=== PATIENT | female | born 1970 | race Two or more races ===

== ENCOUNTER 2018-02-14 19:31 | Emergency (ER) | payer OTHER ==
[2018-02-14] MEDS ORDERED: Sodium Chloride 0.9% 1,000 ML IV ONE (20:31)
[2018-02-14] MEDS ORDERED: Sodium Chloride 0.9% 10 ML Syringe FLUSH PRN (20:33)
[2018-02-14] MEDS ORDERED: Sodium Chloride 0.9% 500 ML IV ONE (21:59)
--- NOTE | 2018-02-14 22:02 | EDM.PDOC ---
<Claude Liu - Last Filed: 02/17/18 08:05> ED HPI GENERAL MEDICAL PROBLEM - General Chief Complaint: General Stated Complaint: WEAK Time Seen by Provider: 02/14/18 20:20 - Related Data Allergies Allergy/AdvReac Type Severity Reaction Status Date / Time No Known Allergies Allergy Verified 02/18/18 02:15 Home Meds: Home Meds Folic Acid 1 tab PO DAILY 02/14/18 [History] Furosemide [Lasix] 1 tab PO DAILY 02/14/18 [History] Glimepiride [Amaryl] 3 tab PO DAILY 02/14/18 [History] amLODIPine Besylate [Amlodipine Besylate] 1 tab PO DAILY 02/14/18 [History] hydroCHLOROthiazide [Hydrochlorothiazide] 1 tab PO DAILY 02/14/18 [History] Ondansetron [Zofran ODT] 4 mg PO Q6H PRN #20 tab.dis 02/21/18 [Rx] Course - Vital Signs Last Recorded V/S: Last Vital Signs Temp 99.0 F 02/14/18 19:46 Pulse 84 02/14/18 19:46 Resp 16 02/14/18 19:46 BP 135/70 02/14/18 19:46 Pulse Ox 99 02/14/18 19:46 - Orders/Labs/Meds Labs: Laboratory Tests 02/14/18 02/14/18 02/14/18 Range/Units 20:15 20:15 20:44 WBC 4.61 (3.98-10.04) K/mm3 RBC 2.72 L (3.98-5.22) M/mm3 Hgb 8.1 L (11.2-15.7) gm/L Hct 25.1 L (34.1-44.9) % MCV 92.3 (79.4-94.8) fl MCH 29.8 (25.6-32.2) pg MCHC 32.3 (32.2-35.5) g/dl RDW Std Deviation 41.5 (36.4-46.3) fL Plt Count 232 (182-369) K/mm3 MPV 8.2 L (9.4-12.3) fl Neutrophils % (Manual) 83 H (40-60) % Band Neutrophils % 1 (0-10) % Lymphocytes % (Manual) 15 L (20-40) % Atypical Lymphs % 0 % Monocytes % (Manual) 0 L (2-10) % Eosinophils % (Manual) 0 L (0.7-5.8) % Basophils % (Manual) 1 (0.1-1.2) Platelet Estimate Adequate Polychromasia 1+ slight Anisocytosis 1+ slight RBC Morph Comment Not Reportable Sodium (136-145) mEq/L Potassium (3.5-5.1) mEq/L Chloride (98-107) mEq/L Carbon Dioxide (21-32) mEq/L Anion Gap (5-15) BUN (7-18) mg/dL Creatinine (0.55-1.02) mg/dL Est Cr Clr Drug Dosing mL/min Estimated GFR (MDRD) (>60) mL/min BUN/Creatinine Ratio (14-18) Glucose (74-106) mg/dL Calcium (8.5-10.1) mg/dL Magnesium (1.8-2.4) mg/dl Total Bilirubin (0.2-1.0) mg/dL AST (15-37) U/L ALT (14-59) U/L Alkaline Phosphatase (46-116) U/L C-Reactive Protein (<1.0) mg/dL Total Protein (6.4-8.2) g/dl Albumin (3.4-5.0) g/dl Globulin gm/dL Albumin/Globulin Ratio (1-2) TSH 3rd Generation (0.358-3.74) uIU/mL Urine Color Yellow (Yellow) Urine Appearance Slt cloudy H (Clear) Urine pH 6.0 (5.0-8.0) Ur Specific [place] > or = 1.030 (1.005-1.030) Urine Protein 3+ H (Negative) Urine Glucose (UA) 1+ H (Negative) Urine Ketones Negative (Negative) Urine Occult Blood 2+ H (Negative) Urine Nitrite Positive H (Negative) Urine Bilirubin Negative (Negative) Urine Urobilinogen 0.2 (0.2-1.0) Ur Leukocyte Esterase Negative (Negative) Urine RBC 10-20 H (0-5) /hpf Urine WBC 20-30 H (0-5) /hpf Ur Epithelial Cells 5-10 H (0-5) /hpf Urine Bacteria Many H (FEW) /hpf Urine Mucus Few (FEW) /hpf Urine HCG, Qual Negative (NEGATIVE) C.difficile [id number] C. difficile Tox (PCR) 02/14/18 02/14/18 Range/Units 20:44 22:16 WBC (3.98-10.04) K/mm3 RBC (3.98-5.22) M/mm3 Hgb (11.2-15.7) gm/L Hct (34.1-44.9) % MCV (79.4-94.8) fl MCH (25.6-32.2) pg MCHC (32.2-35.5) g/dl RDW Std Deviation (36.4-46.3) fL Plt Count (182-369) K/mm3 MPV (9.4-12.3) fl Neutrophils % (Manual) (40-60) % Band Neutrophils % (0-10) % Lymphocytes % (Manual) (20-40) % Atypical Lymphs % % Monocytes % (Manual) (2-10) % Eosinophils % (Manual) (0.7-5.8) % Basophils % (Manual) (0.1-1.2) Platelet Estimate Polychromasia Anisocytosis RBC Morph Comment Sodium 144 (136-145) mEq/L Potassium 4.3 (3.5-5.1) mEq/L Chloride 116 H (98-107) mEq/L Carbon Dioxide 17 L (21-32) mEq/L Anion Gap 15.3 H (5-15) BUN 51 H (7-18) mg/dL Creatinine 2.1 H (0.55-1.02) mg/dL Est Cr Clr Drug Dosing 25.53 mL/min Estimated GFR (MDRD) 25 (>60) mL/min BUN/Creatinine Ratio 24.3 H (14-18) Glucose 72 L (74-106) mg/dL Calcium 8.0 L (8.5-10.1) mg/dL Magnesium 2.2 (1.8-2.4) mg/dl Total Bilirubin 0.1 L (0.2-1.0) mg/dL AST 44 H (15-37) U/L ALT 37 (14-59) U/L Alkaline Phosphatase 102 (46-116) U/L C-Reactive Protein 2.8 H* (<1.0) mg/dL Total Protein 5.5 L (6.4-8.2) g/dl Albumin 1.4 L (3.4-5.0) g/dl Globulin 4.1 gm/dL Albumin/Globulin Ratio 0.3 L (1-2) TSH 3rd Generation 2.153 (0.358-3.74) uIU/mL Urine Color (Yellow) Urine Appearance (Clear) Urine pH (5.0-8.0) Ur Specific [place] (1.005-1.030) Urine Protein (Negative) Urine Glucose (UA) (Negative) Urine Ketones (Negative) Urine Occult Blood (Negative) Urine Nitrite (Negative) Urine Bilirubin (Negative) Urine Urobilinogen (0.2-1.0) Ur Leukocyte Esterase (Negative) Urine RBC (0-5) /hpf Urine WBC (0-5) /hpf Ur Epithelial Cells (0-5) /hpf Urine Bacteria (FEW) /hpf Urine Mucus (FEW) /hpf Urine HCG, Qual (NEGATIVE) C.difficile [id number] Presumptive negative C. difficile Tox (PCR) Negative Meds: Medications Discontinued Medications Generic Name Dose Route Start Last Admin Trade Name Freq PRN Reason Stop Dose Admin Sodium Chloride 1,000 mls @ 999 mls/hr 02/14/18 20:31 02/14/18 20:50 Normal Saline IV 02/14/18 21:31 999 mls/hr ONETIME ONE Administration Sodium Chloride 500 mls @ 999 mls/hr 02/14/18 21:59 02/14/18 22:14 Normal Saline IV 02/14/18 22:29 999 mls/hr ONETIME ONE Administration Sodium Chloride 10 ml 02/14/18 20:33 02/14/18 20:50 Saline Flush FLUSH 10 ml ASDIRECTED PRN Administration Keep Vein Open - Re-Assessments/Exams Free Text/Narrative Re-Assessment/Exam: 02/17/18 08:06 urine culture has come back growing out ecoli sensative to Bactrim prescribed. Departure - Departure Disposition: Home, Self-Care 01 Clinical Impression: Renal insufficiency, Viral gastroenteritis, UTI (urinary tract infection) Anemia Qualifiers: Anemia type: other cause Other causes of anemia: other cause, not classified Qualified Code(s): D64.89 - Other specified anemias - Discharge Information Instructions: Anemia Referrals: PCP,Not In Area [Primary Care Provider] - Forms: ED Department Discharge, ED Return to Work/School Form Additional Instructions: Rx for bactrim 1 tab PO bid x 7 days given from [facility]. Rest. Drink plenty of fluids. [place] diet as tolerated next 1-2 days. [place] diet recommendations include chicken noodle soup, bread, applesauce, yogurt, etc. Recommend starting a probiotic, these are available over the counter. Take the bactrim as prescribed, 1 tab PO bid x 7 days. Follow-up with you director skills as soon as your are able to. Please let them know your hemoglobin was 8.1 tonight. Follow-up with your nurse administrator for further management of your kidney function. Your creatinine tonight was 2.1. Follow-up with you PCP in 1-2 weeks to ensure your diarrhea and UTI symptoms have resolved. Please return to the ER should your symptoms change or worsen. <Dena Navarrete - Last Filed: 02/23/18 05:57> ED HPI GENERAL MEDICAL PROBLEM - General Source of Information: Reports: Patient History Limitations: Reports: No Limitations - History of Present Illness INITIAL COMMENTS - FREE TEXT/NARRATIVE: 47 year old female presents for evaluation and treatment of weakness and diarrhea. Reports symptoms have been going on for the last 2 days. Reports over 10 episodes of diarrhea a day, no blood in her stool. Current symptoms include weakness, nausea, diarrhea, chills and cough. She reports her stomach has been turning but no abdominal pain. Reports increased urinary frequency but no dysuria. Denies any vomiting, shortness of breath or chest pain. Patient also feels her face is more swollen than normal. Patient currently resides in [place] and is in [place] visiting family. She has a past medical history of type 2 diabetes and G6PD deficiency which has caused her anemia requiring blood transfusion in the past. Last blood transfusion was this summer after having issues with a periappendiceal abscess which required drainage. Currently her G6PD deficiency is managed with folic acid. She has a PCP, director skills and nurse administrator at home in [place]. No recent antibiotics. No other recent travel other than coming to [place] for [place]. Past Medical History HEENT History: Reports: Impaired Vision Cardiovascular History: Reports: Hypertension Genitourinary History: Reports: UTI, Recurrent Endocrine/Metabolic History: Reports: Diabetes, Type II Hematologic History: Reports: Other (See Below) Other Hematologic History: G6PD deficiency - Past Surgical History HEENT Surgical History: Reports: Eye Surgery, Other (See Below) Other HEENT Surgeries/Procedures: wisdom teeth removal Social & Family History - Family History Family Medical History: Noncontributory - Tobacco Use Smoking Status *Q: Never Smoker - Caffeine Use Caffeine Use: Reports: Coffee - Recreational Drug Use Recreational Drug Use: No ED ROS GENERAL - Review of Systems Review Of Systems: See Below Constitutional: Reports: Chills, Decreased Appetite. Denies: Fever Respiratory: Reports: Cough. Denies: Shortness of Breath Cardiovascular: Denies: Chest Pain GI/Abdominal: Reports: Diarrhea, Nausea. Denies: Abdominal Pain, Bloody Stool, Vomiting : Reports: Frequency. Denies: Dysuria Neurological: Denies: Syncope ED EXAM, GENERAL - Physical Exam Exam: See Below Exam Limited By: No Limitations General Appearance: Alert, WD/WN, No Apparent Distress, Other (chronically ill appearing) Ears: Normal External Exam Nose: Normal Inspection Throat/Mouth: Normal Inspection, Normal Lips, Normal Oropharynx, Normal Voice, No Airway Compromise Head: Facial Swelling (evident by swelling under the eyes) Respiratory/Chest: No Respiratory Distress, Lungs Clear, Normal Breath Sounds Cardiovascular: Normal Peripheral Pulses, Regular Rate, Rhythm, No Murmur Peripheral Pulses: 2+: Radial (L), Radial (R), Posterior Tibial (L), Posterior Tibial (R), Dorsalis Pedis (L), Dorsalis Pedis (R) GI/Abdominal: Normal Bowel Sounds, Soft, Non-Tender Extremities: Normal Inspection, Other (2+ bilteral pitting edema) Neurological: Alert, Oriented, Normal Cognition Psychiatric: Normal Affect, Normal Mood Skin Exam: Warm, Dry, Pallor Course - Radiology Interpretation Free Text/Narrative:: chest xray shows no acute intrathoracic process, mild congestion abdominal xray shows a normal bowel gas pattern. - Re-Assessments/Exams Free Text/Narrative Re-Assessment/Exam: 02/14/18 22:54 I reviewed the labs and imaging with the patient. Discussed her elevated creatinine, patient currently sees nephrology. She reports her nurse administrator has been monitoring her kidney function. Discussed her hemoglobin, currently sees hematology. No need for transfusion tonight. Recommend close follow-up. Will treat with fluids for the diarrhea and bactrim for the UTI. Will discharge home. Recommend close follow-up with her PCP and specialist when she returns home. Discharge instructions as documented, Departure - Departure Time of Disposition: 22:48 - Discharge Information *PRESCRIPTION DRUG MONITORING PROGRAM REVIEWED*: No *COPY OF PRESCRIPTION DRUG MONITORING REPORT IN PATIENT ADDI: No
--- NOTE | 2018-02-16 08:30 | CR ---
Abdomen: Supine and upright views of the abdomen were obtained. Comparison: No previous study. Bowel gas pattern is normal. Calcifications are seen within the pelvis which are compatible with phleboliths. No free air is seen. Bony structures are unremarkable. Impression: 1. Nothing acute is appreciated. Diagnostic code #2
--- NOTE | 2018-02-16 08:30 | CR ---
Chest: Frontal view of the chest was obtained. Comparison: No prior chest x-ray. Heart appears mildly enlarged. Two healing left lower rib fractures are noted with callus. Central lung markings are increased suggesting mild pulmonary vascular congestion. Impression: 1. Findings suspicious for mild CHF. 2. Two healing left sided rib fractures. Diagnostic code #3
== END 2018-02-14 23:13 | disposition home or self-care (01) ==
LOC: JD.ED 19:31
DX: A08.4 Viral intestinal infection, unspecified (principal); N39.0 Urinary tract infection, site not specified; D64.89 Other specified anemias; N28.9 Disorder of kidney and ureter, unspecified; E11.9 Type 2 diabetes mellitus without complications; I10 Essential (primary) hypertension; Z79.899 Other long term (current) drug therapy
CPT/HCPCS: 36415; 71045; 74019; 80053; 81001; 81025; 83735; 84443; 85007; 85027; 86140; 87086; 87088; 87186; 87493; 96360; 96361; 99285; J7040

== ENCOUNTER 2018-02-18 01:59 | Inpatient (IN) | payer OTHER ==
[2018-02-18] MEDS ORDERED: Sodium Chloride 0.9% 10 ML Syringe FLUSH PRN (02:40)
[2018-02-18] MEDS ORDERED: Ondansetron 4 MG/2 ML SDV IVPUSH ONE (02:42)
--- NOTE | 2018-02-18 04:02 | EDM.PDOC ---
ED HPI GENERAL MEDICAL PROBLEM - General Chief Complaint: Gastrointestinal Problem Stated Complaint: [facility] Time Seen by Provider: 02/18/18 02:20 Source of Information: Reports: Patient, EMS, Family History Limitations: Reports: No Limitations - History of Present Illness INITIAL COMMENTS - FREE TEXT/NARRATIVE: The patient presents by [facility] for diarrhea. The patient is here from [facility] visiting family and she has been having diarrhea for about a week and she feels like it is getting worse. She did not eat any bad food and she has not been around anyone who was sick. She was seen here on the 14 of February. A complete work up was done and her Hgb at that time was 8.2. She has a history of gpqnxxg-[id number] dehydrogenase deficiency. Her UA then showed she had a UTI and she was put on bactrim. Her diarrhea did get better for a short time but now she feels worse. She had stool studies done and she was C-dif negative. She has been trying to eat and drink. She has no fever, chills, cough, or chest pain. She does have some shortness of breath, generalized weakness and fatigue. She has swelling in both legs also. This has been going on for awhile and her doctor has her on HCTZ and lasix. She also has kidney disease and she sees a call center operator back home. A few days ago her creatinine was 2.1. She denies having abdominal pain. She did have appendicitis this summer that was treated with antibiotics. Onset: Gradual Duration: Week(s): Severity: Moderate Improves with: Reports: None Worsens with: Reports: None Associated Symptoms: Reports: Shortness of Breath. Denies: Chest Pain, Cough, Fever/Chills, Headaches, Nausea/Vomiting - Related Data Allergies Allergy/AdvReac Type Severity Reaction Status Date / Time No Known Allergies Allergy Verified 02/18/18 02:15 Home Meds: Home Meds Folic Acid 1 tab PO DAILY 02/14/18 [History] Furosemide [Lasix] 1 tab PO DAILY 02/14/18 [History] Glimepiride [Amaryl] 3 tab PO DAILY 02/14/18 [History] amLODIPine Besylate [Amlodipine Besylate] 1 tab PO DAILY 02/14/18 [History] hydroCHLOROthiazide [Hydrochlorothiazide] 1 tab PO DAILY 02/14/18 [History] Past Medical History HEENT History: Reports: Impaired Vision Cardiovascular History: Reports: Hypertension Genitourinary History: Reports: UTI, Recurrent Endocrine/Metabolic History: Reports: Diabetes, Type II Hematologic History: Reports: Other (See Below) Other Hematologic History: G6PD deficiency - Past Surgical History HEENT Surgical History: Reports: Eye Surgery, Other (See Below) Other HEENT Surgeries/Procedures: wisdom teeth removal Social & Family History - Family History Family Medical History: Noncontributory - Tobacco Use Smoking Status *Q: Never Smoker - Caffeine Use Caffeine Use: Reports: Coffee - Recreational Drug Use Recreational Drug Use: No ED ROS GENERAL - Review of Systems Review Of Systems: See Below Constitutional: Reports: Weakness, Fatigue. Denies: Fever, Chills HEENT: Reports: No Symptoms Respiratory: Reports: Shortness of Breath. Denies: Cough Cardiovascular: Reports: Edema. Denies: Chest Pain Endocrine: Reports: No Symptoms GI/Abdominal: Reports: Diarrhea, Nausea. Denies: Abdominal Pain, Vomiting : Reports: No Symptoms Musculoskeletal: Reports: No Symptoms ED EXAM, GI/ABD - Physical Exam Exam: See Below Exam Limited By: No Limitations General Appearance: Alert, No Apparent Distress Ears: Normal External Exam Nose: Normal Inspection Head: Atraumatic, Normocephalic Neck: Normal Inspection Respiratory/Chest: No Respiratory Distress, Lungs Clear, Normal Breath Sounds Cardiovascular: Regular Rate, Rhythm, No Murmur, Other (2+ edema in both legs) GI/Abdominal Exam: Soft, Non-Tender, No Organomegaly, No Mass, Other ( Hyperactive bowel sounds) Back Exam: Normal Inspection Extremities: Pedal Edema Neurological: Alert, Oriented, No Motor/Sensory Deficits EKG INTERPRETATION EKG Date: 02/18/18 Time: 02:49 Rhythm: NSR Rate (Beats/Min): 80 [place]: Normal P-Wave: Present QRS: Normal ST-T: Normal QT: Normal Course - Vital Signs Last Recorded V/S: Last Vital Signs Temp 97.7 F 02/18/18 04:52 Pulse 81 02/18/18 04:52 Resp 18 02/18/18 04:52 BP 120/59 L 02/18/18 04:52 Pulse Ox 100 02/18/18 02:03 - Orders/Labs/Meds Orders: Active Orders 24 hr Category Date Time Status Cardiac Monitoring [RC] . DIRECTED Care 02/18/18 02:40 Active EKG Documentation Completion [RC] STAT Care 02/18/18 02:41 Active Peripheral IV Care [RC] . DIRECTED Care 02/18/18 02:41 Active Abdomen Pelvis wo Cont [CT] Stat Exams 02/18/18 02:41 Taken PATIENT RETYPE [BBK] Stat Lab 02/18/18 03:02 Results RED BLOOD CELLS LP [BBK] Stat Lab 02/18/18 03:02 Results TYPE AND SCREEN [BBK] Stat Lab 02/18/18 03:02 Results Sodium Chloride 0.9% [Normal Saline] 500 ml Med 02/18/18 04:39 Active IV ONETIME Sodium Chloride 0.9% [Normal Saline] 500 ml Med 02/18/18 04:46 Active IV ONETIME Sodium Chloride 0.9% [Saline Flush] Med 02/18/18 02:40 Active 10 ml FLUSH ASDIRECTED PRN Peripheral IV Insertion Adult [OM.PC] Stat Oth 02/18/18 02:40 Ordered Transfuse RBC [Transfuse Red Blood Cells] [COMM] Stat Oth 02/18/18 03:16 Ordered Medication Orders Sodium Chloride (Normal Saline) 500 mls @ 20 mls/hr IV ONETIME ONE Stop: 02/19/18 05:38 Last Admin: 02/18/18 04:48 Dose: Not Given Sodium Chloride (Normal Saline) 500 mls @ 25 mls/hr IV ONETIME ONE Stop: 02/19/18 00:45 Last Admin: 02/18/18 04:47 Dose: 25 mls/hr Sodium Chloride (Saline Flush) 10 ml FLUSH ASDIRECTED PRN PRN Reason: Keep Vein Open Last Admin: 02/18/18 02:53 Dose: 10 ml Labs: Laboratory Tests 02/18/18 02/18/18 02/18/18 Range/Units 02:55 03:02 03:02 WBC 6.03 (3.98-10.04) K/mm3 RBC 2.25 L (3.98-5.22) M/mm3 Hgb 6.8 L* (11.2-15.7) gm/L Hct 20.4 L (34.1-44.9) % MCV 90.7 (79.4-94.8) fl MCH 30.2 (25.6-32.2) pg MCHC 33.3 (32.2-35.5) g/dl RDW Std Deviation 39.6 (36.4-46.3) fL Plt Count 223 (182-369) K/mm3 MPV 8.5 L (9.4-12.3) fl Neut % (Auto) 70.6 (34.0-71.1) % Lymph % (Auto) 17.6 L (19.3-51.7) % [place] % (Auto) 9.8 (4.7-12.5) % Eos % (Auto) 1.8 (0.7-5.8) Baso % (Auto) 0.2 (0.1-1.2) % Neut # (Auto) 4.26 (1.56-6.13) K/mm3 Lymph # (Auto) 1.06 L (1.18-3.74) K/mm3 [place] # (Auto) 0.59 H (0.24-0.36) K/mm3 Eos # (Auto) 0.11 (0.04-0.36) K/mm3 Baso # (Auto) 0.01 (0.01-0.08) K/mm3 Manual Slide Review Abnormal smear Sodium 138 (136-145) mEq/L Potassium 4.2 (3.5-5.1) mEq/L Chloride 111 H (98-107) mEq/L Carbon Dioxide 15 L (21-32) mEq/L Anion Gap 16.2 H (5-15) BUN 54 H (7-18) mg/dL Creatinine 3.1 H (0.55-1.02) mg/dL Est Cr Clr Drug Dosing 17.29 mL/min Estimated GFR (MDRD) 16 (>60) mL/min BUN/Creatinine Ratio 17.4 (14-18) Glucose 98 (74-106) mg/dL Calcium 7.5 L (8.5-10.1) mg/dL Magnesium 2.0 (1.8-2.4) mg/dl Total Bilirubin 0.1 L (0.2-1.0) mg/dL AST 51 H (15-37) U/L ALT 43 (14-59) U/L Alkaline Phosphatase 95 (46-116) U/L Troponin I 0.044 (0.00-0.056) ng/mL NT-Pro-B Natriuret Pep (0-125) pg/mL Total Protein 5.3 L (6.4-8.2) g/dl Albumin 1.2 L (3.4-5.0) g/dl Globulin 4.1 gm/dL Albumin/Globulin Ratio 0.3 L (1-2) Lipase 156 (73-393) U/L HCG, Qual (NEGATIVE) Urine Color Yellow (Yellow) Urine Appearance Clear (Clear) Urine pH 6.0 (5.0-8.0) Ur Specific Mobile > or = 1.030 (1.005-1.030) Urine Protein 3+ H (Negative) Urine Glucose (UA) 1+ H (Negative) Urine Ketones Negative (Negative) Urine Occult Blood 2+ H (Negative) Urine Nitrite Negative (Negative) Urine Bilirubin Negative (Negative) Urine Urobilinogen 0.2 (0.2-1.0) Ur Leukocyte Esterase Negative (Negative) Urine RBC 5-10 H (0-5) /hpf Urine WBC 0-5 (0-5) /hpf Ur Epithelial Cells 0-5 (0-5) /hpf Urine Bacteria Few (FEW) /hpf Hyaline Casts 0-5 (0-5) /lpf Urine Mucus Few (FEW) /hpf Blood Type Gel Antibody Screen Crossmatch 02/18/18 02/18/18 Range/Units 03:02 03:02 WBC (3.98-10.04) K/mm3 RBC (3.98-5.22) M/mm3 Hgb (11.2-15.7) gm/L Hct (34.1-44.9) % MCV (79.4-94.8) fl MCH (25.6-32.2) pg MCHC (32.2-35.5) g/dl RDW Std Deviation (36.4-46.3) fL Plt Count (182-369) K/mm3 MPV (9.4-12.3) fl Neut % (Auto) (34.0-71.1) % Lymph % (Auto) (19.3-51.7) % [place] % (Auto) (4.7-12.5) % Eos % (Auto) (0.7-5.8) Baso % (Auto) (0.1-1.2) % Neut # (Auto) (1.56-6.13) K/mm3 Lymph # (Auto) (1.18-3.74) K/mm3 [place] # (Auto) (0.24-0.36) K/mm3 Eos # (Auto) (0.04-0.36) K/mm3 Baso # (Auto) (0.01-0.08) K/mm3 Manual Slide Review Sodium (136-145) mEq/L Potassium (3.5-5.1) mEq/L Chloride (98-107) mEq/L Carbon Dioxide (21-32) mEq/L Anion Gap (5-15) BUN (7-18) mg/dL Creatinine (0.55-1.02) mg/dL Est Cr Clr Drug Dosing mL/min Estimated GFR (MDRD) (>60) mL/min BUN/Creatinine Ratio (14-18) Glucose (74-106) mg/dL Calcium (8.5-10.1) mg/dL Magnesium (1.8-2.4) mg/dl Total Bilirubin (0.2-1.0) mg/dL AST (15-37) U/L ALT (14-59) U/L Alkaline Phosphatase (46-116) U/L Troponin I (0.00-0.056) ng/mL NT-Pro-B Natriuret Pep 3677 H (0-125) pg/mL Total Protein (6.4-8.2) g/dl Albumin (3.4-5.0) g/dl Globulin gm/dL Albumin/Globulin Ratio (1-2) Lipase (73-393) U/L HCG, Qual Negative (NEGATIVE) Urine Color (Yellow) Urine Appearance (Clear) Urine pH (5.0-8.0) Ur Specific [place] (1.005-1.030) Urine Protein (Negative) Urine Glucose (UA) (Negative) Urine Ketones (Negative) Urine Occult Blood (Negative) Urine Nitrite (Negative) Urine Bilirubin (Negative) Urine Urobilinogen (0.2-1.0) Ur Leukocyte Esterase (Negative) Urine RBC (0-5) /hpf Urine WBC (0-5) /hpf Ur Epithelial Cells (0-5) /hpf Urine Bacteria (FEW) /hpf Hyaline Casts (0-5) /lpf Urine Mucus (FEW) /hpf Blood Type O POSITIVE Gel Antibody Screen Negative Crossmatch See Detail Meds: Medications Generic Name Dose Route Start Last Admin Trade Name Juwan PRN Reason Stop Dose Admin Sodium Chloride 500 mls @ 20 mls/hr 02/18/18 04:39 02/18/18 04:48 Normal Saline IV 02/19/18 05:38 Not Given ONETIME ONE Sodium Chloride 500 mls @ 25 mls/hr 02/18/18 04:46 02/18/18 04:47 Normal Saline IV 02/19/18 00:45 25 mls/hr ONETIME ONE Administration Sodium Chloride 10 ml 02/18/18 02:40 02/18/18 02:53 Saline Flush FLUSH 10 ml ASDIRECTED PRN Administration Keep Vein Open Discontinued Medications Generic Name Dose Route Start Last Admin Trade Name Juwan PRN Reason Stop Dose Admin Sodium Chloride Confirm 02/18/18 04:27 02/18/18 04:48 Normal Saline Administered 02/18/18 04:28 Not Given Dose 500 mls @ as directed .ROUTE .STK-MED ONE Ondansetron HCl 4 mg 02/18/18 02:42 02/18/18 02:53 Zofran IVPUSH 02/18/18 02:43 4 mg ONETIME ONE Administration - Re-Assessments/Exams Free Text/Narrative Re-Assessment/Exam: 02/18/18 05:14 I ordered an IV saline lock, EKG, labs, UA and a CT of her abdomen and pelvis. She as a history of renal disease so I did not use IV contrast. Her EKG shows a NSR with no acute changes. Her WBC was normal along with her platelets. Her Hgb was low at 6.8. I ordered 2 units of red blood cells. Her anion gap was elevated at 16.2. Her BUN was elevated at 54 and her creatinine was elevated at 3.1 with a low GFR of 16. Her calcium was 7.5. Her troponin was negative. Her BNP was 3677. Her lipase was normal. Her UA shows no UTI. Her CT shows significant third spacing of fluid within the chest and abdominal wall with small bilateral pleural effusions. Appearance is consistent with volume overload/CHF. Trace pericardial effusion. This may also be secondary to a fluid shift phenomenon. Inflammatory etiologies are not excluded. No acute findings in the abdomen and pelvis. She is getting blood now. I feel she needs to be admitted. I called Dr Singh and he agreed to the admission. Departure - Departure Time of Disposition: 05:20 Disposition: Admitted As Inpatient 68 Condition: Poor Clinical Impression: Renal insufficiency, Viral gastroenteritis Anemia Qualifiers: Anemia type: other cause Other causes of anemia: other cause, not classified Qualified Code(s): D64.89 - Other specified anemias Edema Qualifiers: Edema type: generalized Qualified Code(s): R60.1 - Generalized edema - Discharge Information Referrals: PCP,Not In Area [Primary Care Provider] - Forms: ED Department Discharge - My Orders Last 24 Hours: My Active Orders 02/18/18 02:40 Cardiac Monitoring [RC] . DIRECTED Sodium Chloride 0.9% [Saline Flush] 10 ml FLUSH ASDIRECTED PRN Peripheral IV Insertion Adult [OM.PC] Stat 02/18/18 02:41 EKG Documentation Completion [RC] STAT Peripheral IV Care [RC] . DIRECTED Abdomen Pelvis wo Cont [CT] Stat 02/18/18 03:02 PATIENT RETYPE [BBK] Stat RED BLOOD CELLS LP [BBK] Stat TYPE AND SCREEN [BBK] Stat 02/18/18 03:16 Transfuse RBC [Transfuse Red Blood Cells] [COMM] Stat 02/18/18 04:39 Sodium Chloride 0.9% [Normal Saline] 500 ml IV ONETIME 02/18/18 04:46 Sodium Chloride 0.9% [Normal Saline] 500 ml IV ONETIME - Assessment/Plan Last 24 Hours: My Active Orders 02/18/18 02:40 Cardiac Monitoring [RC] . DIRECTED Sodium Chloride 0.9% [Saline Flush] 10 ml FLUSH ASDIRECTED PRN Peripheral IV Insertion Adult [OM.PC] Stat 02/18/18 02:41 EKG Documentation Completion [RC] STAT Peripheral IV Care [RC] . DIRECTED Abdomen Pelvis wo Cont [CT] Stat 02/18/18 03:02 PATIENT RETYPE [BBK] Stat RED BLOOD CELLS LP [BBK] Stat TYPE AND SCREEN [BBK] Stat 02/18/18 03:16 Transfuse RBC [Transfuse Red Blood Cells] [COMM] Stat 02/18/18 04:39 Sodium Chloride 0.9% [Normal Saline] 500 ml IV ONETIME 02/18/18 04:46 Sodium Chloride 0.9% [Normal Saline] 500 ml IV ONETIME
[2018-02-18] MEDS ORDERED: Sodium Chloride 0.9% 500 ML IV ONE ×2 (04:39→04:46)
[2018-02-18] MEDS: Sodium Chloride 0.9% 500 ML ONE ×3 (04:40→04:48)
[2018-02-18] MEDS ORDERED: Bumetanide 1 MG/4 ML MDV IVPUSH ONE (07:30)
--- NOTE | 2018-02-18 08:25 | PCM.HP ---
H&P History of Present Illness - General Date of Service: 02/18/18 Admit Problem/Dx: Admission Diagnosis/Problem Admission Diagnosis/Problem Anemia Source of Information: Patient, Old Records, Provider, RN, RN Notes Reviewed History Limitations: Reports: No Limitations - History of Present Illness Initial Comments - Free Text/Narative: Ashley Winters is a 47 yo female who presents to our ED via [facility] in the very early hours today with diarrhea. She is reportedly from [facility] and is here visiting family. She reports she has been having diarrhea for about a week and feels like it is getting worse. She denies any consumption of spoiled food or sick contacts. She was here on 14 February and at that time a complete workup was done. Her hemoglobin was found to be 8.2. She has a history of [id number] dehydrogenase deficiency. At that visit her UA showed a UTI and she was placed on Bactrim she reports her diarrhea did improve at that time for a very short period and then got worse she did have stool studies performed and she was C. difficile negative. She has been trying to eat and drink to stay hydrated. Eyes any fever, chills, cough, chest pain. She reports generalized weakness fatigue and shortness of breath along with swelling bilaterally. Her PCP has run HCTZ and Lasix. She also reports she has kidney disease and sees a blowing weasand in [place]. Creatinine at the prior visit was 2.1. Denies any abdominal pain. She does report that she had appendicitis this past summer which was treated with antibiotics. In the ED an EKG was obtained showing sinus rhythm at 80 bpm with no abnormalities noted. Temp was 97.7 Fahrenheit. Pulse 81. Respirations 18. Blood pressure 120/59. Pulse ox 100%. Labs are obtained: WBC is 6.03. Hemoglobin 6.8. Hematocrit 20.4. She was normocytic. Platelets are good at 223,000. Neutrophils normal at 70.6. Sodium is 138. Potassium 4.2. Chloride 111. Carbon dioxide is 15. Anion gap is 16.2. BUN is 54. Creatinine 3.1. EGFR 16. Glucose 98. Calcium 7.5. Magnesium 2.0. Total bilirubin 0.1. AST is 51, ALT 43, alkaline phosphatase 95. Troponin is normal at 0.044. Protein is low at 5.3. Albumin very low at 1.2. Lipase is 156. UA is negative however her urine is concentrated and 3+ protein, 1+ glucose, 2+ occult blood, and 5-10 urine RBCs are noted. 3677. HCG is negative. Type and screen shows oh positive with negative screen. She is given 2 500 mL bags of fluid. CT scan of the abdomen and pelvis without contrast is obtained due to her kidney function contrast is not used. This is interpreted by Dr. Rodriguez as "1. Small bilateral pleural effusions with diffuse body wall edema. Minimal pericardial fluid is eating. 2. No acute intra-abdominal processes identified. " Stool is negative for blood. Stool cultures were ordered. 2 units of blood are given for her anemia. She carries a history of: Impaired vision, hypertension, recurrent UTIs, type II DM, G6PD deficiency. She was never a smoker. She is a full code. Her PCP is not from the area. - Related Data Allergies/Adverse Reactions: Allergies Allergy/AdvReac Type Severity Reaction Status Date / Time No Known Allergies Allergy Verified 02/18/18 02:15 Home Medications: Home Meds Folic Acid 1 tab PO DAILY 02/14/18 [History] Furosemide [Lasix] 1 tab PO DAILY 02/14/18 [History] Glimepiride [Amaryl] 3 tab PO DAILY 02/14/18 [History] amLODIPine Besylate [Amlodipine Besylate] 1 tab PO DAILY 02/14/18 [History] hydroCHLOROthiazide [Hydrochlorothiazide] 1 tab PO DAILY 02/14/18 [History] Past Medical History HEENT History: Reports: Impaired Vision Cardiovascular History: Reports: Hypertension Genitourinary History: Reports: Renal Disease, UTI, Recurrent Endocrine/Metabolic History: Reports: Diabetes, Type II Hematologic History: Reports: Other (See Below) Other Hematologic History: G6PD deficiency - Past Surgical History HEENT Surgical History: Reports: Eye Surgery, Other (See Below) Other HEENT Surgeries/Procedures: wisdom teeth removal Social & Family History - Family History Family Medical History: Noncontributory - Tobacco Use Smoking Status *Q: Never Smoker - Caffeine Use Caffeine Use: Reports: Coffee - Recreational Drug Use Recreational Drug Use: No H&P Review of Systems - Review of Systems: Review Of Systems: See Below General: Reports: No Symptoms. Denies: Fever, Chills, Malaise, Weakness, Fatigue HEENT: Reports: No Symptoms. Denies: Headaches, Visual Changes Pulmonary: Reports: No Symptoms. Denies: Shortness of Breath, Wheezing, Cough, Sputum Cardiovascular: Reports: Edema (improving ). Denies: Chest Pain, Palpitations Gastrointestinal: Reports: Diarrhea (althought none since this AM ). Denies: Abdominal Pain, Constipation, Nausea, Vomiting Genitourinary: Reports: No Symptoms. Denies: Pain Musculoskeletal: Reports: No Symptoms Skin: Reports: No Symptoms. Denies: Cyanosis Psychiatric: Reports: No Symptoms. Denies: Confusion Neurological: Reports: No Symptoms. Denies: Confusion, Dizziness, Numbness, Tingling, Weakness Hematologic/Lymphatic: Reports: No Symptoms Immunologic: Reports: No Symptoms Exam - Exam Exam: See Below - Vital Signs Vital Signs: Last Vital Signs Temp 98.6 F 02/18/18 07:38 Pulse 82 02/18/18 06:55 Resp 16 02/18/18 07:38 BP 128/77 02/18/18 07:38 Pulse Ox 100 02/18/18 07:38 Weight: 158 lb 8 oz - Exam Quality Assessment: DVT Prophylaxis General: Alert, Oriented, Cooperative. No: Mild Distress HEENT: Conjunctiva Clear, EACs Clear, EOMI, Hearing Intact, Mucosa Moist & Rachel , Nares Patent, Normal Nasal Septum, Posterior Pharynx Clear, PERRLA Neck: Supple, Trachea Midline Lungs: Clear to Auscultation, Normal Respiratory Effort Cardiovascular: Regular Rate, Regular Rhythm GI/Abdominal Exam: Normal Bowel Sounds, Soft, Non-Tender, No Distention, No Abnormal Bruit (Female) Exam: Deferred Rectal (Female) Exam: Deferred Back Exam: Normal Inspection, Full Range of Motion Extremities: Normal Inspection, Normal Range of Motion, Non-Tender, Normal Capillary Refill, Pedal Edema (1+ bilaterally ) Peripheral Pulses: 1+: Dorsalis Pedis (L), Dorsalis Pedis (R), 2+: Radial (L), Radial (R) Skin: Warm, Dry, Intact Neurological: Cranial Nerves Intact (Grossly ) Neuro Extensive - Mental Status: Alert, Oriented x3, Normal Mood/Affect, Normal Cognition Psychiatric: Alert, Normal Affect, Normal Mood - Patient Data Lab Results Last 24 hrs: Laboratory Results - last 24 hr 02/18/18 02/18/18 02/18/18 Range/Units 02:55 03:02 03:02 WBC 6.03 (3.98-10.04) K/mm3 RBC 2.25 L (3.98-5.22) M/mm3 Hgb 6.8 L* (11.2-15.7) gm/L Hct 20.4 L (34.1-44.9) % MCV 90.7 (79.4-94.8) fl MCH 30.2 (25.6-32.2) pg MCHC 33.3 (32.2-35.5) g/dl RDW Std Deviation 39.6 (36.4-46.3) fL Plt Count 223 (182-369) K/mm3 MPV 8.5 L (9.4-12.3) fl Neut % (Auto) 70.6 (34.0-71.1) % Lymph % (Auto) 17.6 L (19.3-51.7) % [place] % (Auto) 9.8 (4.7-12.5) % Eos % (Auto) 1.8 (0.7-5.8) Baso % (Auto) 0.2 (0.1-1.2) % Neut # (Auto) 4.26 (1.56-6.13) K/mm3 Lymph # (Auto) 1.06 L (1.18-3.74) K/mm3 [place] # (Auto) 0.59 H (0.24-0.36) K/mm3 Eos # (Auto) 0.11 (0.04-0.36) K/mm3 Baso # (Auto) 0.01 (0.01-0.08) K/mm3 Manual Slide Review Abnormal smear Sodium 138 (136-145) mEq/L Potassium 4.2 (3.5-5.1) mEq/L Chloride 111 H (98-107) mEq/L Carbon Dioxide 15 L (21-32) mEq/L Anion Gap 16.2 H (5-15) BUN 54 H (7-18) mg/dL Creatinine 3.1 H (0.55-1.02) mg/dL Est Cr Clr Drug Dosing 17.29 mL/min Estimated GFR (MDRD) 16 (>60) mL/min BUN/Creatinine Ratio 17.4 (14-18) Glucose 98 (74-106) mg/dL Calcium 7.5 L (8.5-10.1) mg/dL Magnesium 2.0 (1.8-2.4) mg/dl Total Bilirubin 0.1 L (0.2-1.0) mg/dL AST 51 H (15-37) U/L ALT 43 (14-59) U/L Alkaline Phosphatase 95 (46-116) U/L Troponin I 0.044 (0.00-0.056) ng/mL NT-Pro-B Natriuret Pep (0-125) pg/mL Total Protein 5.3 L (6.4-8.2) g/dl Albumin 1.2 L (3.4-5.0) g/dl Globulin 4.1 gm/dL Albumin/Globulin Ratio 0.3 L (1-2) Lipase 156 (73-393) U/L HCG, Qual (NEGATIVE) Urine Color Yellow (Yellow) Urine Appearance Clear (Clear) Urine pH 6.0 (5.0-8.0) Ur Specific [place] > or = 1.030 (1.005-1.030) Urine Protein 3+ H (Negative) Urine Glucose (UA) 1+ H (Negative) Urine Ketones Negative (Negative) Urine Occult Blood 2+ H (Negative) Urine Nitrite Negative (Negative) Urine Bilirubin Negative (Negative) Urine Urobilinogen 0.2 (0.2-1.0) Ur Leukocyte Esterase Negative (Negative) Urine RBC 5-10 H (0-5) /hpf Urine WBC 0-5 (0-5) /hpf Ur Epithelial Cells 0-5 (0-5) /hpf Urine Bacteria Few (FEW) /hpf Hyaline Casts 0-5 (0-5) /lpf Urine Mucus Few (FEW) /hpf Blood Type Gel Antibody Screen Crossmatch 02/18/18 02/18/18 Range/Units 03:02 03:02 WBC (3.98-10.04) K/mm3 RBC (3.98-5.22) M/mm3 Hgb (11.2-15.7) gm/L Hct (34.1-44.9) % MCV (79.4-94.8) fl MCH (25.6-32.2) pg MCHC (32.2-35.5) g/dl RDW Std Deviation (36.4-46.3) fL Plt Count (182-369) K/mm3 MPV (9.4-12.3) fl Neut % (Auto) (34.0-71.1) % Lymph % (Auto) (19.3-51.7) % [place] % (Auto) (4.7-12.5) % Eos % (Auto) (0.7-5.8) Baso % (Auto) (0.1-1.2) % Neut # (Auto) (1.56-6.13) K/mm3 Lymph # (Auto) (1.18-3.74) K/mm3 [place] # (Auto) (0.24-0.36) K/mm3 Eos # (Auto) (0.04-0.36) K/mm3 Baso # (Auto) (0.01-0.08) K/mm3 Manual Slide Review Sodium (136-145) mEq/L Potassium (3.5-5.1) mEq/L Chloride (98-107) mEq/L Carbon Dioxide (21-32) mEq/L Anion Gap (5-15) BUN (7-18) mg/dL Creatinine (0.55-1.02) mg/dL Est Cr Clr Drug Dosing mL/min Estimated GFR (MDRD) (>60) mL/min BUN/Creatinine Ratio (14-18) Glucose (74-106) mg/dL Calcium (8.5-10.1) mg/dL Magnesium (1.8-2.4) mg/dl Total Bilirubin (0.2-1.0) mg/dL AST (15-37) U/L ALT (14-59) U/L Alkaline Phosphatase (46-116) U/L Troponin I (0.00-0.056) ng/mL NT-Pro-B Natriuret Pep 3677 H (0-125) pg/mL Total Protein (6.4-8.2) g/dl Albumin (3.4-5.0) g/dl Globulin gm/dL Albumin/Globulin Ratio (1-2) Lipase (73-393) U/L HCG, Qual Negative (NEGATIVE) Urine Color (Yellow) Urine Appearance (Clear) Urine pH (5.0-8.0) Ur Specific [place] (1.005-1.030) Urine Protein (Negative) Urine Glucose (UA) (Negative) Urine Ketones (Negative) Urine Occult Blood (Negative) Urine Nitrite (Negative) Urine Bilirubin (Negative) Urine Urobilinogen (0.2-1.0) Ur Leukocyte Esterase (Negative) Urine RBC (0-5) /hpf Urine WBC (0-5) /hpf Ur Epithelial Cells (0-5) /hpf Urine Bacteria (FEW) /hpf Hyaline Casts (0-5) /lpf Urine Mucus (FEW) /hpf Blood Type O POSITIVE Gel Antibody Screen Negative Crossmatch See Detail Result Diagrams: 02/18/18 12:39 02/18/18 12:38 Harjinder Results Last 24 hrs: Microbiology 02/18/18 05:30 Stool Occult Blood (HARJINDER) - Final Stool / Feces - Problem List (1) Glucose 6 phosphatase deficiency SNOMED Code(s): 312021761 ICD Code: E74.01 - [place] DISEASE Status: Chronic Priority: High Current Visit: Yes (2) HTN (hypertension) SNOMED Code(s): 04881120 ICD Code: I10 - ESSENTIAL (PRIMARY) HYPERTENSION Status: Chronic Priority : Medium Current Visit: No Qualifiers: Hypertension type: unspecified Qualified Code(s): I10 - Essential (primary ) hypertension (3) Anemia SNOMED Code(s): 821531285 ICD Code: D64.9 - ANEMIA, UNSPECIFIED Status: Acute Priority: High Current Visit: Yes Qualifiers: Anemia type: other cause Other causes of anemia: other cause, not classified Qualified Code(s): D64.89 - Other specified anemias (4) Edema SNOMED Code(s): 657044393, 612279120 ICD Code: R60.9 - EDEMA, UNSPECIFIED Status: Acute Priority: High Current Visit: Yes Qualifiers: Edema type: generalized Qualified Code(s): R60.1 - Generalized edema (5) Renal insufficiency SNOMED Code(s): 902171224, 230012154 ICD Code: N28.9 - DISORDER OF KIDNEY AND URETER, UNSPECIFIED Status: Acute Priority: High Current Visit: Yes (6) Viral gastroenteritis SNOMED Code(s): 540310014 ICD Code: A08.4 - VIRAL INTESTINAL INFECTION, UNSPECIFIED Status: Acute Priority: High Current Visit: Yes (7) Type II diabetes mellitus SNOMED Code(s): 30771707 ICD Code: E11.9 - TYPE 2 DIABETES MELLITUS WITHOUT COMPLICATIONS Status: Acute Priority: High Current Visit: Yes Qualifiers: Diabetes mellitus shelter insulin use: without moth exterminator use Diabetes mellitus complication status: with unspecified complications Qualified Code(s) : E11.8 - Type 2 diabetes mellitus with unspecified complications (8) Dehydration SNOMED Code(s): 93233345 ICD Code: E86.0 - DEHYDRATION Status: Acute Current Visit: Yes (9) Hypoalbuminemia SNOMED Code(s): 001279825 ICD Code: E88.09 - OTH DISORDERS OF PLASMA-PROTEIN METABOLISM, NEC Status: Acute Current Visit: Yes Problem List Initiated/Reviewed/Updated: Yes Orders Last 24hrs: Active Orders 24 hr Category Date Time Status Patient Status [ADT] Routine ADT 02/18/18 06:50 Active Cardiac Monitoring [RC] . DIRECTED Care 02/18/18 02:40 Active EKG Documentation Completion [RC] STAT Care 02/18/18 02:41 Active Peripheral IV Care [RC] Q2HR Care 02/18/18 02:41 Active Renal Dialysis Diet [DIET] Diet 02/18/18 Breakfast Active Abdomen Pelvis wo Cont [CT] Stat Exams 02/18/18 02:41 Taken Echo Comp wo Cont [US] Routine Exams 02/18/18 07:57 Ordered Retroperitoneal Comp [US] Routine Exams 02/18/18 07:58 Ordered CULTURE STOOL + SHIGATOX [RM] Stat Lab 02/18/18 05:30 Ordered PATIENT RETYPE [BBK] Stat Lab 02/18/18 03:02 Results RED BLOOD CELLS LP [BBK] Stat Lab 02/18/18 03:02 Results TYPE AND SCREEN [BBK] Stat Lab 02/18/18 03:02 Results Folic Acid Med 02/18/18 09:00 Active 1 mg PO DAILY Glimepiride [Amaryl] Med 02/18/18 09:00 Active 6 mg PO DAILY Sodium Chloride 0.9% [Normal Saline] 500 ml Med 02/18/18 04:39 Active IV ONETIME Sodium Chloride 0.9% [Normal Saline] 500 ml Med 02/18/18 04:46 Active IV ONETIME Sodium Chloride 0.9% [Saline Flush] Med 02/18/18 02:40 Active 10 ml FLUSH ASDIRECTED PRN amLODIPine [Norvasc] Med 02/18/18 09:00 Active 5 mg PO DAILY Peripheral IV Insertion Adult [OM.PC] Stat Oth 02/18/18 02:40 Ordered Transfuse RBC [Transfuse Red Blood Cells] [COMM] Stat Oth 02/18/18 03:16 Ordered Resuscitation Status Routine Resus Stat 02/18/18 07:17 Ordered Medication Orders Amlodipine Besylate (Norvasc) 5 mg PO DAILY SOLEDAD Folic Acid (Folic Acid) 1 mg PO DAILY SOLEDAD Glimepiride (Amaryl) 6 mg PO DAILY SOLEDAD Sodium Chloride (Normal Saline) 500 mls @ 20 mls/hr IV ONETIME ONE Stop: 02/19/18 05:38 Last Admin: 02/18/18 04:48 Dose: Not Given Sodium Chloride (Normal Saline) 500 mls @ 25 mls/hr IV ONETIME ONE Stop: 02/19/18 00:45 Last Admin: 02/18/18 04:47 Dose: 25 mls/hr Sodium Chloride (Saline Flush) 10 ml FLUSH ASDIRECTED PRN PRN Reason: Keep Vein Open Last Admin: 02/18/18 02:53 Dose: 10 ml Assessment/Plan Comment:: I/P: Acute: Anemia -Hgb 6.8-->9.6 -Hct 20.4-->29.0 -Hgb 8.1 on prior visit to ED 4 days ago (02/14/18) -Hx/o G6PD -Given 2 units in ED -Repeat Hgb as needed -Negative occult blood -Likely 2/2 G6PD Edema -2+ edema noted in ED -Query Heart Failure -Echo obtained today -Hx/o Edema - on home HCTZ and lasix -Hold home HCTZ and Lasix -Pro-BNP 3677 (has Hx/o renal failure) -CT scan shows small bilateral pleural effusions and diffuse body wall edema -Diuretics as ordered - caution with worsening renal failure -Improved on floor -CXR ordered PRISCILA -Acute on chronic -Hx/o G6PD, HTN, Type II DM -Worsened by dehydration (concentrated urine and frequent recent diarrhea) -Unknown baseline - last visit in ED showed creatinine/GFR of 2.1/25 -Not from area - reportedly sees nephrology in [place] -Renal ultrasound ordered today -Creatinine 3.1-->3.0 -BUN 54-->50 -eGFR 16-->17 -IV fluids as ordered -Balance worsening edema vs. renal function Diarrhea -Reports diarrhea for past week - feels like it is getting worse -Diagnosed with viral gastroenteritis on 02/14/18 in our ED -Negative for C. Diff on 02/14/18 -No leukocytosis -CRP 3.5 -CT abdomen/Pelvis in ED on 02/18/18 -Small bilateral pleural effusions with diffuse body wall edema -Minimal pericardial fluid is seen -No acute intra-abdominal process is seen -No Diarrhea since this AM Hypoalbuminemia -Albumin 1.2 -Contributing to 3rd spacing of fluids -Dietary consult -Renal diet Chronic: Impaired vision HTN Recurrent UTI Type II DM: A1C, Urine creatinine and microalbumine ordered G6PD Plan: Admit to ICU Home medications as ordered She is ambulatory so will hold off PT/OT for now Other orders as indicated above Routine AM Labs DVT/PE Prophylaxis: Heparin Code status: Full code; PCP: [place]
--- NOTE | 2018-02-18 08:42 | CT ---
CT abdomen and pelvis Technique: Multiple axial sections were obtained from above the dome of the diaphragm inferiorly through the pubic symphysis. Intravenous and oral contrast not utilized. Comparison: No prior abdominal and pelvic CT study, previous abdominal x-ray 02/14/18 is available. Findings: Minimal pericardial effusion is seen. Small bilateral pleural effusions are noted. Diffuse body wall edema is present. Liver shows no focal parenchymal abnormality. Spleen appears within normal limits. Adrenal glands show no nodule. Pancreas is within normal limits. Gallbladder contains no calcified gallstones. Kidneys show no hydronephrosis. Several minimal calcifications seen within the kidneys compatible with nonobstructing calculi. Aorta shows atherosclerotic calcification without aneurysm. No retroperitoneal adenopathy is seen. No pelvic mass or adenopathy is seen. Appendix not seen with certainty. Incidental note of left-sided inferior vena cava. Bone window settings were reviewed which appear within normal limits for the patient's age. Impression: 1. Small bilateral pleural effusions with diffuse body wall edema. Minimal pericardial fluid is seen. 2. No acute intra-abdominal process is identified. Diagnostic code #3 I agree with preliminary report from [facility], finalized on 02/18/18, 5:53 AM Central Time
[2018-02-18] MEDS ORDERED: Glimepiride 2 MG Tab PO SCH (09:00)
[2018-02-18] MEDS: Folic Acid 1 MG Tab PO SCH (10:22)
[2018-02-18] MEDS: amLODIPine 5 MG Tab PO SCH (10:22)
[2018-02-18] MEDS ORDERED: Ondansetron 4 MG Tab.DIS PO PRN (11:39)
[2018-02-18] MEDS ORDERED: Ondansetron 4 MG/2 ML SDV IV PRN (11:39)
[2018-02-18] MEDS ORDERED: Acetaminophen/HYDROcodone 325-5 MG Tab PO PRN (11:39)
[2018-02-18] MEDS ORDERED: Acetaminophen 325 MG Tab PO PRN (11:39)
[2018-02-18] MEDS ORDERED: HYDROmorphone 1 MG/ML Syringe IVPUSH PRN (11:39)
[2018-02-18] MEDS ORDERED: hydrALAZINE 20 MG/ML SDV IVPUSH PRN (11:52)
[2018-02-18] MEDS ORDERED: Metoprolol Tartrate 5 MG/5 ML SDV IVPUSH PRN (11:52)
[2018-02-18] MEDS ORDERED: Sodium Chloride 0.9% 1,000 ML IV SCH ×2 (13:15→15:00)
[2018-02-18 13:44] LABS: HEMOGLOBIN A1C 4.3 % (4.50-6.20)
--- NOTE | 2018-02-18 14:55 | CR ---
Chest: Two views of the chest were obtained. Comparison: Prior chest x-ray of 02/14/18. Heart size is slightly enlarged. Pulmonary vessels are felt to be mildly congested. Very minimal Rosemarie B lines are noted within the left base. Minimal thickening of the major fissures are seen. Bony structures are unremarkable. Impression: 1. Findings as described above felt compatible with mild CHF. Diagnostic code #3
[2018-02-18] MEDS: Heparin Sodium 5,000 Units/ML Vial SUBCUT SCH ×2 (15:56→21:05)
[2018-02-18] MEDS: 50% Dextrose in Water 50 ML Syringe IVPUSH PRN ×2 (16:55→21:02)
[2018-02-18] MEDS ORDERED: Dextrose 5%-0.9% NaCl 1,000 ML ONE (21:04)
[2018-02-18] MEDS: Dextrose 5%-0.9% NaCl 1,000 ML IV SCH (21:08)
[2018-02-19] MEDS: 50% Dextrose in Water 50 ML Syringe IVPUSH PRN ×2 (04:16→10:06)
[2018-02-19] MEDS: Heparin Sodium 5,000 Units/ML Vial SUBCUT SCH ×3 (06:05→21:25)
--- NOTE | 2018-02-19 08:32 | CR ---
Chest: Portable view of the chest was obtained. Comparison: Prior chest x-ray of 02/18/18. Heart is enlarged. Increased lung markings are noted which appear stable from prior study presumably due to stable pulmonary vascular congestion. Lungs otherwise are clear. Bony structures are grossly intact. Impression: 1. Cardiomegaly which is stable. 2. Increased lung markings most likely representing stable pulmonary vascular congestion. 3. No significant change from previous study is seen. Diagnostic code #3
[2018-02-19] MEDS ORDERED: Bumetanide 1 MG/4 ML MDV IVPUSH SCH (09:00)
[2018-02-19] MEDS ORDERED: Glimepiride 2 MG Tab PO SCH (09:00)
[2018-02-19] MEDS ORDERED: Furosemide 100 MG in Sodium Chloride 0.9% 90 ML IV SCH (09:15)
--- NOTE | 2018-02-19 09:21 | PCM.PN ---
- General Info Date of Service: 02/19/18 Admission Dx/Problem (Free Text): Admission Diagnosis/Problem Admission Diagnosis/Problem Anemia Subjective Update: Follow Up Functional Status: Reports: Pain Controlled, Tolerating Diet, Ambulating, Urinating. Denies: New Symptoms - Review of Systems General: Reports: Appetite (no much appetite). Denies: Fever, Weakness, Fatigue , Malaise, Chills HEENT: Reports: No Symptoms Pulmonary: Denies: Shortness of Breath Cardiovascular: Reports: Edema. Denies: Chest Pain, Palpitations, Dyspnea on Exertion, Orthopnea, PND, Lightheadedness Gastrointestinal: Reports: Decreased Appetite. Denies: Abdominal Pain, Diarrhea , Flatus, Nausea, Vomiting Genitourinary: Denies: Dysuria Musculoskeletal: Reports: No Symptoms Skin: Denies: Cyanosis, Mottled, Diaphoresis, Bruising Neurological: Denies: Confusion, Dizziness, Headache, Syncope, Difficulty Walking, Weakness, Gait Disturbance Psychiatric: Denies: Depression, Anxiety, Agitation, Hallucinations Systems Review Comment:: Overnight she bottomed out multiple times and so her D5 IV fluids was increased and is now at 150cc/hr. She was asymptomatic however. She feels pretty good except she has no appetite. Her Cr is slightly better at 2.8 (2.4 baseline) but her Albumin continues to worsen now at 1.2. She has no other complaints. - Patient Data Vitals - Most Recent: Last Vital Signs Temp 36.8 C 02/19/18 08:00 Pulse 78 02/19/18 08:00 Resp 16 02/19/18 08:00 BP 145/69 H 02/19/18 08:00 Pulse Ox 100 02/19/18 08:00 Weight - Most Recent: 73.539 kg I&O - Last 24 Hours: Intake & Output 02/18/18 02/19/18 02/19/18 22:59 06:59 14:59 Intake Total 1389 767 Output Total 1200 400 250 Balance 189 367 -250 Lab Results Last 24 Hours: Laboratory Results - last 24 hr 02/18/18 02/18/18 02/18/18 Range/Units 03:02 08:55 12:38 WBC (3.98-10.04) K/mm3 RBC (3.98-5.22) M/mm3 Hgb (11.2-15.7) gm/L Hct (34.1-44.9) % MCV (79.4-94.8) fl MCH (25.6-32.2) pg MCHC (32.2-35.5) g/dl RDW Std Deviation (36.4-46.3) fL Plt Count (182-369) K/mm3 MPV (9.4-12.3) fl Neut % (Auto) (34.0-71.1) % Lymph % (Auto) (19.3-51.7) % [place] % (Auto) (4.7-12.5) % Eos % (Auto) (0.7-5.8) Baso % (Auto) (0.1-1.2) % Neut # (Auto) (1.56-6.13) K/mm3 Lymph # (Auto) (1.18-3.74) K/mm3 [place] # (Auto) (0.24-0.36) K/mm3 Eos # (Auto) (0.04-0.36) K/mm3 Baso # (Auto) (0.01-0.08) K/mm3 Sodium 136 (136-145) mEq/L Potassium 4.2 (3.5-5.1) mEq/L Chloride 111 H (98-107) mEq/L Carbon Dioxide 14 L (21-32) mEq/L Anion Gap 15.2 H (5-15) BUN 50 H (7-18) mg/dL Creatinine 3.0 H (0.55-1.02) mg/dL Est Cr Clr Drug Dosing 17.87 mL/min Estimated GFR (MDRD) 17 (>60) mL/min BUN/Creatinine Ratio 16.7 (14-18) Glucose 89 (74-106) mg/dL POC Glucose (70-105) mg/dL Hemoglobin A1c (4.50-6.20) % Calcium 8.0 L (8.5-10.1) mg/dL Magnesium 2.1 (1.8-2.4) mg/dl Total Bilirubin (0.2-1.0) mg/dL AST (15-37) U/L ALT (14-59) U/L Alkaline Phosphatase (46-116) U/L C-Reactive Protein 3.5 H* (<1.0) mg/dL NT-Pro-B Natriuret Pep (0-125) pg/mL Total Protein (6.4-8.2) g/dl Albumin (3.4-5.0) g/dl Globulin gm/dL Albumin/Globulin Ratio (1-2) Ur Random Creatinine 54.8 (30.0-125.0) mg/dL Ur Random Microalbumin TNP Microalb/Creat Ratio TNP Crossmatch See Detail 02/18/18 02/18/18 02/18/18 Range/Units 12:39 12:39 12:39 WBC 5.65 (3.98-10.04) K/mm3 RBC 3.24 L (3.98-5.22) M/mm3 Hgb 9.6 L (11.2-15.7) gm/L Hct 29.0 L (34.1-44.9) % MCV 89.5 (79.4-94.8) fl MCH 29.6 (25.6-32.2) pg MCHC 33.1 (32.2-35.5) g/dl RDW Std Deviation 41.8 (36.4-46.3) fL Plt Count 200 (182-369) K/mm3 MPV 8.6 L (9.4-12.3) fl Neut % (Auto) 70.8 (34.0-71.1) % Lymph % (Auto) 16.6 L (19.3-51.7) % [place] % (Auto) 9.6 (4.7-12.5) % Eos % (Auto) 2.8 (0.7-5.8) Baso % (Auto) 0.2 (0.1-1.2) % Neut # (Auto) 4.00 (1.56-6.13) K/mm3 Lymph # (Auto) 0.94 L (1.18-3.74) K/mm3 [place] # (Auto) 0.54 H (0.24-0.36) K/mm3 Eos # (Auto) 0.16 (0.04-0.36) K/mm3 Baso # (Auto) 0.01 (0.01-0.08) K/mm3 Sodium (136-145) mEq/L Potassium (3.5-5.1) mEq/L Chloride (98-107) mEq/L Carbon Dioxide (21-32) mEq/L Anion Gap (5-15) BUN (7-18) mg/dL Creatinine (0.55-1.02) mg/dL Est Cr Clr Drug Dosing mL/min Estimated GFR (MDRD) (>60) mL/min BUN/Creatinine Ratio (14-18) Glucose (74-106) mg/dL POC Glucose (70-105) mg/dL Hemoglobin A1c 4.30 L (4.50-6.20) % Calcium (8.5-10.1) mg/dL Magnesium (1.8-2.4) mg/dl Total Bilirubin (0.2-1.0) mg/dL AST (15-37) U/L ALT (14-59) U/L Alkaline Phosphatase (46-116) U/L C-Reactive Protein (<1.0) mg/dL NT-Pro-B Natriuret Pep 3086 H (0-125) pg/mL Total Protein (6.4-8.2) g/dl Albumin (3.4-5.0) g/dl Globulin gm/dL Albumin/Globulin Ratio (1-2) Ur Random Creatinine (30.0-125.0) mg/dL Ur Random Microalbumin Microalb/Creat Ratio Crossmatch 02/18/18 02/18/18 02/18/18 Range/Units 16:37 16:51 17:13 WBC (3.98-10.04) K/mm3 RBC (3.98-5.22) M/mm3 Hgb (11.2-15.7) gm/L Hct (34.1-44.9) % MCV (79.4-94.8) fl MCH (25.6-32.2) pg MCHC (32.2-35.5) g/dl RDW Std Deviation (36.4-46.3) fL Plt Count (182-369) K/mm3 MPV (9.4-12.3) fl Neut % (Auto) (34.0-71.1) % Lymph % (Auto) (19.3-51.7) % [place] % (Auto) (4.7-12.5) % Eos % (Auto) (0.7-5.8) Baso % (Auto) (0.1-1.2) % Neut # (Auto) (1.56-6.13) K/mm3 Lymph # (Auto) (1.18-3.74) K/mm3 [place] # (Auto) (0.24-0.36) K/mm3 Eos # (Auto) (0.04-0.36) K/mm3 Baso # (Auto) (0.01-0.08) K/mm3 Sodium (136-145) mEq/L Potassium (3.5-5.1) mEq/L Chloride (98-107) mEq/L Carbon Dioxide (21-32) mEq/L Anion Gap (5-15) BUN (7-18) mg/dL Creatinine (0.55-1.02) mg/dL Est Cr Clr Drug Dosing mL/min Estimated GFR (MDRD) (>60) mL/min BUN/Creatinine Ratio (14-18) Glucose (74-106) mg/dL POC Glucose 34 L 33 L 130 H (70-105) mg/dL Hemoglobin A1c (4.50-6.20) % Calcium (8.5-10.1) mg/dL Magnesium (1.8-2.4) mg/dl Total Bilirubin (0.2-1.0) mg/dL AST (15-37) U/L ALT (14-59) U/L Alkaline Phosphatase (46-116) U/L C-Reactive Protein (<1.0) mg/dL NT-Pro-B Natriuret Pep (0-125) pg/mL Total Protein (6.4-8.2) g/dl Albumin (3.4-5.0) g/dl Globulin gm/dL Albumin/Globulin Ratio (1-2) Ur Random Creatinine (30.0-125.0) mg/dL Ur Random Microalbumin Microalb/Creat Ratio Crossmatch 02/18/18 02/18/18 02/18/18 Range/Units 17:15 21:02 21:28 WBC (3.98-10.04) K/mm3 RBC (3.98-5.22) M/mm3 Hgb (11.2-15.7) gm/L Hct (34.1-44.9) % MCV (79.4-94.8) fl MCH (25.6-32.2) pg MCHC (32.2-35.5) g/dl RDW Std Deviation (36.4-46.3) fL Plt Count (182-369) K/mm3 MPV (9.4-12.3) fl Neut % (Auto) (34.0-71.1) % Lymph % (Auto) (19.3-51.7) % [place] % (Auto) (4.7-12.5) % Eos % (Auto) (0.7-5.8) Baso % (Auto) (0.1-1.2) % Neut # (Auto) (1.56-6.13) K/mm3 Lymph # (Auto) (1.18-3.74) K/mm3 [place] # (Auto) (0.24-0.36) K/mm3 Eos # (Auto) (0.04-0.36) K/mm3 Baso # (Auto) (0.01-0.08) K/mm3 Sodium (136-145) mEq/L Potassium (3.5-5.1) mEq/L Chloride (98-107) mEq/L Carbon Dioxide (21-32) mEq/L Anion Gap (5-15) BUN (7-18) mg/dL Creatinine (0.55-1.02) mg/dL Est Cr Clr Drug Dosing mL/min Estimated GFR (MDRD) (>60) mL/min BUN/Creatinine Ratio (14-18) Glucose 124 H 159 H (74-106) mg/dL POC Glucose 111 H (70-105) mg/dL Hemoglobin A1c (4.50-6.20) % Calcium (8.5-10.1) mg/dL Magnesium (1.8-2.4) mg/dl Total Bilirubin (0.2-1.0) mg/dL AST (15-37) U/L ALT (14-59) U/L Alkaline Phosphatase (46-116) U/L C-Reactive Protein (<1.0) mg/dL NT-Pro-B Natriuret Pep (0-125) pg/mL Total Protein (6.4-8.2) g/dl Albumin (3.4-5.0) g/dl Globulin gm/dL Albumin/Globulin Ratio (1-2) Ur Random Creatinine (30.0-125.0) mg/dL Ur Random Microalbumin Microalb/Creat Ratio Crossmatch 12/28/18 12/29/18 12/29/18 Range/Units 23:59 04:11 04:37 WBC (3.98-10.04) K/mm3 RBC (3.98-5.22) M/mm3 Hgb (11.2-15.7) gm/L Hct (34.1-44.9) % MCV (79.4-94.8) fl MCH (25.6-32.2) pg MCHC (32.2-35.5) g/dl RDW Std Deviation (36.4-46.3) fL Plt Count (182-369) K/mm3 MPV (9.4-12.3) fl Neut % (Auto) (34.0-71.1) % Lymph % (Auto) (19.3-51.7) % [place] % (Auto) (4.7-12.5) % Eos % (Auto) (0.7-5.8) Baso % (Auto) (0.1-1.2) % Neut # (Auto) (1.56-6.13) K/mm3 Lymph # (Auto) (1.18-3.74) K/mm3 [place] # (Auto) (0.24-0.36) K/mm3 Eos # (Auto) (0.04-0.36) K/mm3 Baso # (Auto) (0.01-0.08) K/mm3 Sodium (136-145) mEq/L Potassium (3.5-5.1) mEq/L Chloride (98-107) mEq/L Carbon Dioxide (21-32) mEq/L Anion Gap (5-15) BUN (7-18) mg/dL Creatinine (0.55-1.02) mg/dL Est Cr Clr Drug Dosing mL/min Estimated GFR (MDRD) (>60) mL/min BUN/Creatinine Ratio (14-18) Glucose (74-106) mg/dL POC Glucose 74 42 L 92 (70-105) mg/dL Hemoglobin A1c (4.50-6.20) % Calcium (8.5-10.1) mg/dL Magnesium (1.8-2.4) mg/dl Total Bilirubin (0.2-1.0) mg/dL AST (15-37) U/L ALT (14-59) U/L Alkaline Phosphatase (46-116) U/L C-Reactive Protein (<1.0) mg/dL NT-Pro-B Natriuret Pep (0-125) pg/mL Total Protein (6.4-8.2) g/dl Albumin (3.4-5.0) g/dl Globulin gm/dL Albumin/Globulin Ratio (1-2) Ur Random Creatinine (30.0-125.0) mg/dL Ur Random Microalbumin Microalb/Creat Ratio Crossmatch 02/19/18 02/19/18 02/19/18 Range/Units 04:38 04:38 04:38 WBC 5.03 (3.98-10.04) K/mm3 RBC 3.19 L (3.98-5.22) M/mm3 Hgb 9.6 L (11.2-15.7) gm/L Hct 28.0 L (34.1-44.9) % MCV 87.8 (79.4-94.8) fl MCH 30.1 (25.6-32.2) pg MCHC 34.3 (32.2-35.5) g/dl RDW Std Deviation 41.8 (36.4-46.3) fL Plt Count 236 (182-369) K/mm3 MPV 8.3 L (9.4-12.3) fl Neut % (Auto) 66.4 (34.0-71.1) % Lymph % (Auto) 20.7 (19.3-51.7) % [place] % (Auto) 9.3 (4.7-12.5) % Eos % (Auto) 3.2 (0.7-5.8) Baso % (Auto) 0.4 (0.1-1.2) % Neut # (Auto) 3.34 (1.56-6.13) K/mm3 Lymph # (Auto) 1.04 L (1.18-3.74) K/mm3 [place] # (Auto) 0.47 H (0.24-0.36) K/mm3 Eos # (Auto) 0.16 (0.04-0.36) K/mm3 Baso # (Auto) 0.02 (0.01-0.08) K/mm3 Sodium 138 (136-145) mEq/L Potassium 4.0 (3.5-5.1) mEq/L Chloride 111 H (98-107) mEq/L Carbon Dioxide 14 L (21-32) mEq/L Anion Gap 17.0 H (5-15) BUN 45 H (7-18) mg/dL Creatinine 2.8 H (0.55-1.02) mg/dL Est Cr Clr Drug Dosing 19.17 mL/min Estimated GFR (MDRD) 18 (>60) mL/min BUN/Creatinine Ratio 16.1 (14-18) Glucose 109 H (74-106) mg/dL POC Glucose (70-105) mg/dL Hemoglobin A1c (4.50-6.20) % Calcium 7.8 L (8.5-10.1) mg/dL Magnesium 1.9 (1.8-2.4) mg/dl Total Bilirubin 0.2 (0.2-1.0) mg/dL AST 32 (15-37) U/L ALT 37 (14-59) U/L Alkaline Phosphatase 91 (46-116) U/L C-Reactive Protein (<1.0) mg/dL NT-Pro-B Natriuret Pep 3237 H (0-125) pg/mL Total Protein 5.2 L (6.4-8.2) g/dl Albumin 1.2 L (3.4-5.0) g/dl Globulin 4.0 gm/dL Albumin/Globulin Ratio 0.3 L (1-2) Ur Random Creatinine (30.0-125.0) mg/dL Ur Random Microalbumin Microalb/Creat Ratio Crossmatch 02/19/18 02/19/18 Range/Units 06:47 07:53 WBC (3.98-10.04) K/mm3 RBC (3.98-5.22) M/mm3 Hgb (11.2-15.7) gm/L Hct (34.1-44.9) % MCV (79.4-94.8) fl MCH (25.6-32.2) pg MCHC (32.2-35.5) g/dl RDW Std Deviation (36.4-46.3) fL Plt Count (182-369) K/mm3 MPV (9.4-12.3) fl Neut % (Auto) (34.0-71.1) % Lymph % (Auto) (19.3-51.7) % [place] % (Auto) (4.7-12.5) % Eos % (Auto) (0.7-5.8) Baso % (Auto) (0.1-1.2) % Neut # (Auto) (1.56-6.13) K/mm3 Lymph # (Auto) (1.18-3.74) K/mm3 [place] # (Auto) (0.24-0.36) K/mm3 Eos # (Auto) (0.04-0.36) K/mm3 Baso # (Auto) (0.01-0.08) K/mm3 Sodium (136-145) mEq/L Potassium (3.5-5.1) mEq/L Chloride (98-107) mEq/L Carbon Dioxide (21-32) mEq/L Anion Gap (5-15) BUN (7-18) mg/dL Creatinine (0.55-1.02) mg/dL Est Cr Clr Drug Dosing mL/min Estimated GFR (MDRD) (>60) mL/min BUN/Creatinine Ratio (14-18) Glucose (74-106) mg/dL POC Glucose 54 L 36 L (70-105) mg/dL Hemoglobin A1c (4.50-6.20) % Calcium (8.5-10.1) mg/dL Magnesium (1.8-2.4) mg/dl Total Bilirubin (0.2-1.0) mg/dL AST (15-37) U/L ALT (14-59) U/L Alkaline Phosphatase (46-116) U/L C-Reactive Protein (<1.0) mg/dL NT-Pro-B Natriuret Pep (0-125) pg/mL Total Protein (6.4-8.2) g/dl Albumin (3.4-5.0) g/dl Globulin gm/dL Albumin/Globulin Ratio (1-2) Ur Random Creatinine (30.0-125.0) mg/dL Ur Random Microalbumin Microalb/Creat Ratio Crossmatch Harjinder Results Last 24 Hours: Microbiology 02/18/18 05:30 Shiga Toxin I - Final Stool / Feces NEGATIVE FOR SHIGA TOXIN 1 Shiga Toxin II - Final NEGATIVE FOR SHIGA TOXIN 2 02/18/18 05:30 Stool Occult Blood (HARJINDER) - Final Stool / Feces Med Orders - Current: Current Medications Acetaminophen (Tylenol) 650 mg PO Q4H PRN PRN Reason: Pain (Mild 1-3)/fever Hydrocodone Bitart/Acetaminophen ([place] 325-5 Mg) 1 tab PO Q4H PRN PRN Reason: Pain (moderate 4-6) Amlodipine Besylate (Norvasc) 5 mg PO DAILY [facility] Last Admin: 02/18/18 10:22 Dose: 5 mg Dextrose/Water (Dextrose 50% In Water) 50 ml IVPUSH ASDIRECTED PRN PRN Reason: Hypoglycemia Last Admin: 02/19/18 04:16 Dose: 50 ml Folic Acid (Folic Acid) 1 mg PO DAILY [facility] Last Admin: 02/18/18 10:22 Dose: 1 mg Glimepiride (Amaryl) 2 mg PO DAILY [facility] Heparin Sodium (Porcine) (Heparin Sodium) 5,000 units SUBCUT Q8H [facility] Last Admin: 02/19/18 06:05 Dose: 5,000 units Hydralazine HCl (Apresoline) 20 mg IVPUSH Q4H PRN PRN Reason: Hypertension Hydromorphone HCl (Dilaudid) 0.25 mg IVPUSH Q2H PRN PRN Reason: Pain (severe 7-10) Dextrose/Sodium Chloride (Dextrose 5%-Normal Saline) 1,000 mls @ 50 mls/hr IV ASDIRECTED [facility] Last Infusion: 02/19/18 06:49 Dose: 150 mls/hr Furosemide 100 mg/ Sodium (Chloride) 100 mls @ 1.5 mls/hr IV TITRATE [facility]; Protocol Albumin Human (Flexbumin 25%) 25 gm in 100 mls @ 100 mls/hr IV ONETIME ONE Stop: 02/19/18 10:10 Insulin Human Lispro (Humalog) 0 unit SUBCUT QIDACANDBED [facility]; Protocol Magnesium Sulfate (Pharmacy To Dose - Magnesium Replacement) 1 dose .XX ASDIRECTED [facility] Metoprolol Tartrate (Lopressor) 5 mg IVPUSH Q4H PRN PRN Reason: Tachycardia Ondansetron HCl (Zofran) 4 mg IV Q6H PRN PRN Reason: Nausea/Vomiting Ondansetron HCl (Zofran Odt) 4 mg PO Q6H PRN PRN Reason: nausea, able to take PO Potassium Chloride (Pharmacy To Dose - Potassium Replacement) 1 dose .XX ASDIRECTED [facility] Sodium Chloride (Saline Flush) 10 ml FLUSH ASDIRECTED PRN PRN Reason: Keep Vein Open Last Admin: 02/18/18 02:53 Dose: 10 ml Discontinued Medications Bumetanide (Bumex) 1 mg IVPUSH ONETIME ONE Stop: 02/18/18 07:31 Last Admin: 02/18/18 07:49 Dose: 1 mg Bumetanide (Bumex) 0.5 mg IVPUSH DAILY [facility] Glimepiride (Amaryl) 6 mg PO DAILY [facility] Last Admin: 02/18/18 10:21 Dose: 6 mg Glimepiride (Amaryl) 2 mg PO DAILY [facility] Sodium Chloride (Normal Saline) Confirm Administered Dose 500 mls @ as directed .ROUTE .STK-MED ONE Stop: 02/18/18 04:28 Last Admin: 02/18/18 04:48 Dose: Not Given Sodium Chloride (Normal Saline) 500 mls @ 20 mls/hr IV ONETIME ONE Stop: 02/19/18 05:38 Last Admin: 02/18/18 04:48 Dose: Not Given Sodium Chloride (Normal Saline) 500 mls @ 25 mls/hr IV ONETIME ONE Stop: 02/19/18 00:45 Last Admin: 02/18/18 04:47 Dose: 25 mls/hr Sodium Chloride (Normal Saline) 1,000 mls @ 150 mls/hr IV ASDIRECTED [facility] Stop: 02/18/18 19:54 Sodium Chloride (Normal Saline) 1,000 mls @ 150 mls/hr IV Q7H [facility] Stop: 02/19/18 04:39 Last Admin: 02/18/18 15:56 Dose: 150 mls/hr Dextrose/Sodium Chloride (Dextrose 5%-Normal Saline) Confirm Administered Dose 1 ,000 mls @ as directed .ROUTE .STK-MED ONE Stop: 02/18/18 21:05 Last Admin: 02/18/18 21:17 Dose: Not Given Ondansetron HCl (Zofran) 4 mg IVPUSH ONETIME ONE Stop: 02/18/18 02:43 Last Admin: 02/18/18 02:53 Dose: 4 mg - Exam General: Alert, Oriented, Cooperative, No Acute Distress HEENT: Pupils Equal, Pupils Reactive, EOMI, Mucous Membr. Moist/[place] Neck: Supple Lungs: Clear to Auscultation, Normal Respiratory Effort Cardiovascular: Regular Rate, Regular Rhythm GI/Abdominal Exam: Normal Bowel Sounds, Non-Tender, No Organomegaly, No Distention, No Abnormal Bruit, No Mass (Female) Exam: Deferred Back Exam: Normal Inspection, Full Range of Motion Extremities: Normal Inspection, Normal Range of Motion, Non-Tender, Normal Capillary Refill, Pedal Edema, Other (bilateral lower extremity non-pitting edema) Peripheral Pulses: 1+: Dorsalis Pedis (L), Dorsalis Pedis (R) Skin: Warm, Dry, Intact Neurological: No New Focal Deficit Psy/Mental Status: Alert, Normal Affect, Normal Mood - Problem List Review Problem List Initiated/Reviewed/Updated: Yes - My Orders Last 24 Hours: My Active Orders 02/23/18 09:00 Glimepiride [Amaryl] 2 mg PO DAILY 02/18/18 09:00 Folic Acid 1 mg PO DAILY amLODIPine [Norvasc] 5 mg PO DAILY 02/18/18 10:00 [facility] [US] Routine 02/18/18 21:00 Dextrose 5%-0.9% NaCl [Dextrose 5%-Normal Saline] 1,000 ml IV ASDIRECTED 02/18/18 23:19 Consult to [place] [Consult to Diabetic Nurse Specialist] [CONS] Routine 02/19/18 09:11 Albumin 25% [Flexbumin 25%] 25 gm in 100 ml IV ONETIME 02/19/18 09:15 Furosemide [Lasix] 100 mg Sodium Chloride 0.9% [Normal Saline] 90 ml IV TITRATE 02/19/18 11:00 Insulin Lispro [HumaLOG] See Protocol SUBCUT QIDACANDBED - Plan Plan:: I/P: Acute: Nephrotic Syndrome/Overt Proteinuria - Carries a long time hx/o diabetes - UA is 3+ protein, Significant Edema and Hypoalbuminemia (Albumin of 1.2); no lipid panel ordered - She states she has been seeing a networking technology instructor; her recent [place] state she was taken off ACEI and switch to Amlodine along with her lasix and hctz--> plan is to switch her back to ACEI once her kidneys as better per patient - Albumin infusion of 25 mg IV x1 to improve her protein state and continue loop diuretic - Expect renal function to improve once her protein level is better then will resume hctz Significant Peripheral Edema, Improved -2/2 Nephrotic Syndrome -2+ edema noted in ED -2 Echo report 02/18/2018 LVEF 60-65%. No Valvular Dysfunction. No RWMA. Normal Right VS Function (no heart failure) -Hx/o Edema - on home HCTZ and lasix -Hold home Lasix; resume hctz later -Pro-BNP 3677 (has Hx/o renal failure) -CT scan shows small bilateral pleural effusions and diffuse body wall edema -CXR ordered 02/19/18 shows not no significant change from previous imaging 02/18/2018 Non Oliguric Renal Failure -Acute on chronic 2/2 Nephrotic Syndrome -Hx/o G6PD, HTN, Type II DM, and Nephrotic Syndrome -Worsened by dehydration (concentrated urine, frequent recent diarrhea and antibiotic use to treat UTI) -Unknown baseline - last visit in ED showed creatinine/GFR of 2.1/25 -Not from area - reportedly sees nephrology in [place] -Renal ultrasound 02/18/2018 reports suggests on underlying medical renal disease -Creatinine 3.1-->3.0 (baseline 2.4 02/14/2018) -BUN 54-->50; eGFR 16-->17 -Continue IVF fluids for renal perfusion Hypoalbuminemia -Albumin 1.2 --> 1.2 (1.4 baseline) -2/2 Nephrotic Syndrome -Contributing to 3rd spacing of fluids -Dietary consult for malnutrition -Renal diet Hypoglycemia w/ DM2 -A1C 4.30 -2/2 Glimepiride in the setting for acute renal failure -On D5W IV infusion but has had multiple hypoglycemic episode -BS dropped to 30, 40, 50s overnight -D/c Glimiperide and start low dose ISS Reduced Appetite -Offered Marinol -Refused it Resolved: S/p Anemia -2/2 Acute G6PD Hemolysis and Poor Iron Intake (No Appetite) -Has hx/o G6PD Deficiency -Negative occult blood -Hgb 6.8-->9.6--> 9.6 (stable) -Hgb 8.1 on prior visit to ED 4 days ago (02/14/18) -Given 2 units in ED -Repeat Hgb as needed S/p Diarrhea -Reports diarrhea for past week - feels like it is getting worse -Diagnosed with viral gastroenteritis on 02/14/18 in our ED -Negative for C. Diff on 02/14/18 -No leukocytosis -CRP 3.5 -CT abdomen/Pelvis in ED on 02/18/18 -Small bilateral pleural effusions with diffuse body wall edema -Minimal pericardial fluid is seen -No acute intra-abdominal process is seen -No Diarrhea since this AM Chronic: Impaired vision HTN Recurrent UTI Type II DM. Well controlled G6PD Deficiency Plan: She is clinically stable Home medications as ordered Routine AM Labs Other orders as indicated above DVT/PE Prophylaxis: Heparin SubQ Encourage to ambulate as tolerated Code status: Full code; PCP: [place]
[2018-02-19] MEDS: Folic Acid 1 MG Tab PO SCH (09:36)
[2018-02-19] MEDS: amLODIPine 5 MG Tab PO SCH (09:36)
[2018-02-19] MEDS: Dextrose 5%-0.9% NaCl 1,000 ML IV SCH (10:06)
[2018-02-19] MEDS: Insulin Lispro 100 Unit/ML 3 ML KwikPen SUBCUT SCH ×3 (12:05→21:19)
[2018-02-20] MEDS: Insulin Lispro 100 Unit/ML 3 ML KwikPen SUBCUT SCH ×4 (06:56→21:15)
[2018-02-20] MEDS: Sodium Chloride 0.9% 1,000 ML IV SCH ×3 (06:58→15:32)
[2018-02-20] MEDS: Heparin Sodium 5,000 Units/ML Vial SUBCUT SCH ×3 (06:59→21:15)
[2018-02-20] MEDS ORDERED: Hydrochlorothiazide 12.5 MG Cap PO SCH (09:00)
[2018-02-20] MEDS: amLODIPine 5 MG Tab PO SCH (09:06)
[2018-02-20] MEDS: Folic Acid 1 MG Tab PO SCH (09:06)
--- NOTE | 2018-02-20 09:38 | PCM.PN ---
- General Info Date of Service: 02/20/18 Functional Status: Reports: Pain Controlled, Tolerating Diet, Ambulating, Urinating - Review of Systems General: Reports: No Symptoms HEENT: Reports: No Symptoms Pulmonary: Reports: No Symptoms Cardiovascular: Reports: No Symptoms Gastrointestinal: Reports: No Symptoms Genitourinary: Reports: No Symptoms Musculoskeletal: Reports: No Symptoms Skin: Reports: No Symptoms Neurological: Reports: No Symptoms Psychiatric: Reports: No Symptoms - Patient Data Vitals - Most Recent: Last Vital Signs Temp 37.2 C 02/20/18 07:58 Pulse 80 02/19/18 16:00 Resp 16 02/20/18 07:58 BP 159/84 H 02/20/18 09:06 Pulse Ox 93 L 02/20/18 07:58 Weight - Most Recent: 73.028 kg I&O - Last 24 Hours: Intake & Output 02/19/18 02/20/18 02/20/18 22:59 06:59 14:59 Intake Total 1041 446 Output Total 1150 425 250 Balance -109 21 -250 Lab Results Last 24 Hours: Laboratory Results - last 24 hr 02/19/18 02/19/18 02/19/18 Range/Units 10:05 11:14 13:05 WBC (3.98-10.04) K/mm3 RBC (3.98-5.22) M/mm3 Hgb (11.2-15.7) gm/L Hct (34.1-44.9) % MCV (79.4-94.8) fl MCH (25.6-32.2) pg MCHC (32.2-35.5) g/dl RDW Std Deviation (36.4-46.3) fL Plt Count (182-369) K/mm3 MPV (9.4-12.3) fl Neut % (Auto) (34.0-71.1) % Lymph % (Auto) (19.3-51.7) % [place] % (Auto) (4.7-12.5) % Eos % (Auto) (0.7-5.8) Baso % (Auto) (0.1-1.2) % Neut # (Auto) (1.56-6.13) K/mm3 Lymph # (Auto) (1.18-3.74) K/mm3 [place] # (Auto) (0.24-0.36) K/mm3 Eos # (Auto) (0.04-0.36) K/mm3 Baso # (Auto) (0.01-0.08) K/mm3 Sodium (136-145) mEq/L Potassium (3.5-5.1) mEq/L Chloride (98-107) mEq/L Carbon Dioxide (21-32) mEq/L Anion Gap (5-15) BUN (7-18) mg/dL Creatinine (0.55-1.02) mg/dL Est Cr Clr Drug Dosing mL/min Estimated GFR (MDRD) (>60) mL/min BUN/Creatinine Ratio (14-18) Glucose (74-106) mg/dL POC Glucose 43 L 82 68 L (70-105) mg/dL Calcium (8.5-10.1) mg/dL Magnesium (1.8-2.4) mg/dl Total Bilirubin (0.2-1.0) mg/dL AST (15-37) U/L ALT (14-59) U/L Alkaline Phosphatase (46-116) U/L NT-Pro-B Natriuret Pep (0-125) pg/mL Total Protein (6.4-8.2) g/dl Albumin (3.4-5.0) g/dl Globulin gm/dL Albumin/Globulin Ratio (1-2) Triglycerides (<150) mg/dL Cholesterol (<200) mg/dL LDL Cholesterol Direct (<100) mg/dL HDL Cholesterol (40-59) mg/dL 02/19/18 02/19/18 02/19/18 Range/Units 16:53 16:55 21:10 WBC (3.98-10.04) K/mm3 RBC (3.98-5.22) M/mm3 Hgb (11.2-15.7) gm/L Hct (34.1-44.9) % MCV (79.4-94.8) fl MCH (25.6-32.2) pg MCHC (32.2-35.5) g/dl RDW Std Deviation (36.4-46.3) fL Plt Count (182-369) K/mm3 MPV (9.4-12.3) fl Neut % (Auto) (34.0-71.1) % Lymph % (Auto) (19.3-51.7) % [place] % (Auto) (4.7-12.5) % Eos % (Auto) (0.7-5.8) Baso % (Auto) (0.1-1.2) % Neut # (Auto) (1.56-6.13) K/mm3 Lymph # (Auto) (1.18-3.74) K/mm3 [place] # (Auto) (0.24-0.36) K/mm3 Eos # (Auto) (0.04-0.36) K/mm3 Baso # (Auto) (0.01-0.08) K/mm3 Sodium 140 (136-145) mEq/L Potassium 4.3 (3.5-5.1) mEq/L Chloride 114 H (98-107) mEq/L Carbon Dioxide 13 L (21-32) mEq/L Anion Gap 17.3 H (5-15) BUN 43 H (7-18) mg/dL Creatinine 2.6 H (0.55-1.02) mg/dL Est Cr Clr Drug Dosing 20.64 mL/min Estimated GFR (MDRD) 20 (>60) mL/min BUN/Creatinine Ratio 16.5 (14-18) Glucose 83 (74-106) mg/dL POC Glucose 76 126 H (70-105) mg/dL Calcium 7.8 L (8.5-10.1) mg/dL Magnesium 1.9 (1.8-2.4) mg/dl Total Bilirubin (0.2-1.0) mg/dL AST (15-37) U/L ALT (14-59) U/L Alkaline Phosphatase (46-116) U/L NT-Pro-B Natriuret Pep (0-125) pg/mL Total Protein (6.4-8.2) g/dl Albumin (3.4-5.0) g/dl Globulin gm/dL Albumin/Globulin Ratio (1-2) Triglycerides (<150) mg/dL Cholesterol (<200) mg/dL LDL Cholesterol Direct (<100) mg/dL HDL Cholesterol (40-59) mg/dL 02/20/18 02/20/18 02/20/18 Range/Units 05:32 05:32 05:32 WBC 4.80 (3.98-10.04) K/mm3 RBC 2.90 L (3.98-5.22) M/mm3 Hgb 8.7 L (11.2-15.7) gm/L Hct 25.9 L (34.1-44.9) % MCV 89.3 (79.4-94.8) fl MCH 30.0 (25.6-32.2) pg MCHC 33.6 (32.2-35.5) g/dl RDW Std Deviation 42.7 (36.4-46.3) fL Plt Count 225 (182-369) K/mm3 MPV 8.3 L (9.4-12.3) fl Neut % (Auto) 60.9 (34.0-71.1) % Lymph % (Auto) 24.2 (19.3-51.7) % [place] % (Auto) 11.0 (4.7-12.5) % Eos % (Auto) 3.3 (0.7-5.8) Baso % (Auto) 0.6 (0.1-1.2) % Neut # (Auto) 2.92 (1.56-6.13) K/mm3 Lymph # (Auto) 1.16 L (1.18-3.74) K/mm3 [place] # (Auto) 0.53 H (0.24-0.36) K/mm3 Eos # (Auto) 0.16 (0.04-0.36) K/mm3 Baso # (Auto) 0.03 (0.01-0.08) K/mm3 Sodium 142 (136-145) mEq/L Potassium 4.3 (3.5-5.1) mEq/L Chloride 116 H (98-107) mEq/L Carbon Dioxide 15 L (21-32) mEq/L Anion Gap 15.3 H (5-15) BUN 40 H (7-18) mg/dL Creatinine 2.4 H (0.55-1.02) mg/dL Est Cr Clr Drug Dosing 22.36 mL/min Estimated GFR (MDRD) 22 (>60) mL/min BUN/Creatinine Ratio 16.7 (14-18) Glucose 76 (74-106) mg/dL POC Glucose (70-105) mg/dL Calcium 7.7 L (8.5-10.1) mg/dL Magnesium 1.8 (1.8-2.4) mg/dl Total Bilirubin 0.2 (0.2-1.0) mg/dL AST 28 (15-37) U/L ALT 32 (14-59) U/L Alkaline Phosphatase 84 (46-116) U/L NT-Pro-B Natriuret Pep 3397 H (0-125) pg/mL Total Protein 4.7 L (6.4-8.2) g/dl Albumin 1.2 L (3.4-5.0) g/dl Globulin 3.5 gm/dL Albumin/Globulin Ratio 0.3 L (1-2) Triglycerides 163 H (<150) mg/dL Cholesterol 207 H (<200) mg/dL LDL Cholesterol Direct 137 H* (<100) mg/dL HDL Cholesterol 45.0 (40-59) mg/dL 02/20/18 Range/Units 05:32 WBC (3.98-10.04) K/mm3 RBC (3.98-5.22) M/mm3 Hgb (11.2-15.7) gm/L Hct (34.1-44.9) % MCV (79.4-94.8) fl MCH (25.6-32.2) pg MCHC (32.2-35.5) g/dl RDW Std Deviation (36.4-46.3) fL Plt Count (182-369) K/mm3 MPV (9.4-12.3) fl Neut % (Auto) (34.0-71.1) % Lymph % (Auto) (19.3-51.7) % [place] % (Auto) (4.7-12.5) % Eos % (Auto) (0.7-5.8) Baso % (Auto) (0.1-1.2) % Neut # (Auto) (1.56-6.13) K/mm3 Lymph # (Auto) (1.18-3.74) K/mm3 [place] # (Auto) (0.24-0.36) K/mm3 Eos # (Auto) (0.04-0.36) K/mm3 Baso # (Auto) (0.01-0.08) K/mm3 Sodium (136-145) mEq/L Potassium (3.5-5.1) mEq/L Chloride (98-107) mEq/L Carbon Dioxide (21-32) mEq/L Anion Gap (5-15) BUN (7-18) mg/dL Creatinine (0.55-1.02) mg/dL Est Cr Clr Drug Dosing mL/min Estimated GFR (MDRD) (>60) mL/min BUN/Creatinine Ratio (14-18) Glucose (74-106) mg/dL POC Glucose 81 (70-105) mg/dL Calcium (8.5-10.1) mg/dL Magnesium (1.8-2.4) mg/dl Total Bilirubin (0.2-1.0) mg/dL AST (15-37) U/L ALT (14-59) U/L Alkaline Phosphatase (46-116) U/L NT-Pro-B Natriuret Pep (0-125) pg/mL Total Protein (6.4-8.2) g/dl Albumin (3.4-5.0) g/dl Globulin gm/dL Albumin/Globulin Ratio (1-2) Triglycerides (<150) mg/dL Cholesterol (<200) mg/dL LDL Cholesterol Direct (<100) mg/dL HDL Cholesterol (40-59) mg/dL Harjinder Results Last 24 Hours: Microbiology 02/18/18 05:30 Stool Culture - Preliminary Stool / Feces Shiga Toxin I - Final NEGATIVE FOR SHIGA TOXIN 1 Shiga Toxin II - Final NEGATIVE FOR SHIGA TOXIN 2 Med Orders - Current: Current Medications Acetaminophen (Tylenol) 650 mg PO Q4H PRN PRN Reason: Pain (Mild 1-3)/fever Hydrocodone Bitart/Acetaminophen ([place] 325-5 Mg) 1 tab PO Q4H PRN PRN Reason: Pain (moderate 4-6) Amlodipine Besylate (Norvasc) 5 mg PO DAILY [facility] Last Admin: 02/20/18 09:06 Dose: 5 mg Dextrose/Water (Dextrose 50% In Water) 50 ml IVPUSH ASDIRECTED PRN PRN Reason: Hypoglycemia Last Admin: 02/19/18 10:06 Dose: 50 ml Folic Acid (Folic Acid) 1 mg PO DAILY [facility] Last Admin: 02/20/18 09:06 Dose: 1 mg Heparin Sodium (Porcine) (Heparin Sodium) 5,000 units SUBCUT Q8H [facility] Last Admin: 02/20/18 06:59 Dose: 5,000 units Hydralazine HCl (Apresoline) 20 mg IVPUSH Q4H PRN PRN Reason: Hypertension Hydrochlorothiazide (Hydrochlorothiazide) 12.5 mg PO DAILY [facility] Last Admin: 02/20/18 09:06 Dose: 12.5 mg Hydromorphone HCl (Dilaudid) 0.25 mg IVPUSH Q2H PRN PRN Reason: Pain (severe 7-10) Furosemide 100 mg/ Sodium (Chloride) 100 mls @ 1.5 mls/hr IV TITRATE [facility]; Protocol Last Admin: 02/19/18 10:26 Dose: 1.5 mls/hr Sodium Chloride (Normal Saline) 1,000 mls @ 150 mls/hr IV ASDIRECTED [facility] Last Admin: 02/20/18 06:58 Dose: 150 mls/hr Insulin Human Lispro (Humalog) 0 unit SUBCUT QIDACANDBED [facility]; Protocol Last Admin: 02/20/18 06:56 Dose: Not Given Metoprolol Tartrate (Lopressor) 5 mg IVPUSH Q4H PRN PRN Reason: Tachycardia Ondansetron HCl (Zofran) 4 mg IV Q6H PRN PRN Reason: Nausea/Vomiting Ondansetron HCl (Zofran Odt) 4 mg PO Q6H PRN PRN Reason: nausea, able to take PO Sodium Chloride (Saline Flush) 10 ml FLUSH ASDIRECTED PRN PRN Reason: Keep Vein Open Last Admin: 02/18/18 02:53 Dose: 10 ml Discontinued Medications Bumetanide (Bumex) 1 mg IVPUSH ONETIME ONE Stop: 02/18/18 07:31 Last Admin: 02/18/18 07:49 Dose: 1 mg Bumetanide (Bumex) 0.5 mg IVPUSH DAILY [facility] Last Admin: 02/19/18 10:19 Dose: Not Given Glimepiride (Amaryl) 6 mg PO DAILY [facility] Last Admin: 02/18/18 10:21 Dose: 6 mg Glimepiride (Amaryl) 2 mg PO DAILY [facility] Last Admin: 02/19/18 10:18 Dose: Not Given Glimepiride (Amaryl) 2 mg PO DAILY [facility] Sodium Chloride (Normal Saline) Confirm Administered Dose 500 mls @ as directed .ROUTE .STK-MED ONE Stop: 02/18/18 04:28 Last Admin: 02/18/18 04:48 Dose: Not Given Sodium Chloride (Normal Saline) 500 mls @ 20 mls/hr IV ONETIME ONE Stop: 02/19/18 05:38 Last Admin: 02/18/18 04:48 Dose: Not Given Sodium Chloride (Normal Saline) 500 mls @ 25 mls/hr IV ONETIME ONE Stop: 02/19/18 00:45 Last Admin: 02/18/18 04:47 Dose: 25 mls/hr Sodium Chloride (Normal Saline) 1,000 mls @ 150 mls/hr IV ASDIRECTED [place] Stop: 02/18/18 19:54 Sodium Chloride (Normal Saline) 1,000 mls @ 150 mls/hr IV Q7H [place] Stop: 02/19/18 04:39 Last Admin: 02/18/18 15:56 Dose: 150 mls/hr Dextrose/Sodium Chloride (Dextrose 5%-Normal Saline) 1,000 mls @ 50 mls/hr IV ASDIRECTED [facility] Last Infusion: 02/19/18 19:53 Dose: 150 mls/hr Dextrose/Sodium Chloride (Dextrose 5%-Normal Saline) Confirm Administered Dose 1 ,000 mls @ as directed .ROUTE .STK-MED ONE Stop: 02/18/18 21:05 Last Admin: 02/18/18 21:17 Dose: Not Given Albumin Human (Flexbumin 25%) 25 gm in 100 mls @ 100 mls/hr IV ONETIME ONE Stop: 02/19/18 10:10 Last Admin: 02/19/18 09:36 Dose: 100 mls/hr Magnesium Sulfate (Pharmacy To Dose - Magnesium Replacement) 1 dose .XX ASDIRECTED [facility] Ondansetron HCl (Zofran) 4 mg IVPUSH ONETIME ONE Stop: 02/18/18 02:43 Last Admin: 02/18/18 02:53 Dose: 4 mg Potassium Chloride (Pharmacy To Dose - Potassium Replacement) 1 dose .XX ASDIRECTED [facility] - Exam Quality Assessment: DVT Prophylaxis General: Alert, Oriented, Cooperative, No Acute Distress HEENT: Pupils Equal, Pupils Reactive, EOMI Neck: Trachea Midline, No JVD Lungs: Normal Respiratory Effort Cardiovascular: Regular Rate, Regular Rhythm GI/Abdominal Exam: Normal Bowel Sounds, Soft, Non-Tender, No Organomegaly, No Distention (Female) Exam: Deferred Back Exam: Normal Inspection Extremities: Normal Inspection, Non-Tender, Normal Capillary Refill Skin: Warm Neurological: No New Focal Deficit, Normal Gait, Normal Speech Psy/Mental Status: Alert, Normal Affect, Normal Mood - Problem List Review Problem List Initiated/Reviewed/Updated: Yes - Plan Plan:: I/P: Acute: Nephrotic Syndrome/Overt Proteinuria - Carries a long time hx/o diabetes - UA is 3+ protein, Significant Edema and Hypoalbuminemia (Albumin of 1.2); no lipid panel ordered - She states she has been seeing a ward assistant; her recent [place] state she was taken off ACEI and switch to Amlodine along with her lasix and hctz--> plan is to switch her back to ACEI once her kidneys as better per patient Significant Peripheral Edema, Improved -2/2 Nephrotic Syndrome -2+ edema noted in ED -2 Echo report 02/18/2018 LVEF 60-65%. No Valvular Dysfunction. No RWMA. Normal Right VS Function (no heart failure) -Hx/o Edema - on home HCTZ and lasix -Hold home Lasix; resume hctz later -Pro-BNP 3677 (has Hx/o renal failure) -CT scan shows small bilateral pleural effusions and diffuse body wall edema -CXR ordered 02/19/18 shows not no significant change from previous imaging 02/18/2018 Non Oliguric Renal Failure -Acute on chronic 2/2 Nephrotic Syndrome -Hx/o G6PD, HTN, Type II DM, and Nephrotic Syndrome -Worsened by dehydration (concentrated urine, frequent recent diarrhea and antibiotic use to treat UTI) -Unknown baseline - last visit in ED showed creatinine/GFR of 2.1/25 -Not from area - reportedly sees nephrology in [place] -Renal ultrasound 02/18/2018 reports suggests on underlying medical renal disease -Creatinine 3.1-->3.0 (baseline 2.4 02/14/2018) -BUN 54-->50; eGFR 16-->17 -Continue IVF fluids for renal perfusion Hypoalbuminemia -Albumin 1.2 --> 1.2 (1.4 baseline) -2/2 Nephrotic Syndrome -Contributing to 3rd spacing of fluids -Dietary consult for malnutrition -Renal diet Hypoglycemia w/ DM2 -A1C 4.30 -2/2 Glimepiride in the setting for acute renal failure -On D5W IV infusion but has had multiple hypoglycemic episode -BS dropped to 30, 40, 50s overnight -D/c Glimiperide and start low dose ISS Reduced Appetite -Offered Marinol -Refused it Resolved: S/p Anemia -2/2 Acute G6PD Hemolysis and Poor Iron Intake (No Appetite) -Has hx/o G6PD Deficiency -Negative occult blood -Hgb 6.8-->9.6--> 9.6 (stable) -Hgb 8.1 on prior visit to ED 4 days ago (02/14/18) -Given 2 units in ED -Repeat Hgb as needed S/p Diarrhea -Reports diarrhea for past week - feels like it is getting worse -Diagnosed with viral gastroenteritis on 02/14/18 in our ED -Negative for C. Diff on 02/14/18 -No leukocytosis -CRP 3.5 -CT abdomen/Pelvis in ED on 02/18/18 -Small bilateral pleural effusions with diffuse body wall edema -Minimal pericardial fluid is seen -No acute intra-abdominal process is seen -No Diarrhea since this AM Chronic: Impaired vision HTN Recurrent UTI Type II DM. Well controlled G6PD Deficiency Plan: She is clinically stable Home medications as ordered Routine AM Labs Other orders as indicated above DVT/PE Prophylaxis: Heparin SubQ Encourage to ambulate as tolerated Code status: Full code; PCP: [place]
[2018-02-20] MEDS ORDERED: Magnesium Sulfate/Water 2 GM in Premix Bag 1 BAG IV ONE (14:17)
[2018-02-20] MEDS ORDERED: Terazosin 1 MG Cap PO PRN (14:23)
[2018-02-20] MEDS ORDERED: Lactated Ringers 1,000 ML IV SCH (18:15)
[2018-02-21] MEDS: Heparin Sodium 5,000 Units/ML Vial SUBCUT SCH ×2 (05:26→15:05)
[2018-02-21] MEDS: Insulin Lispro 100 Unit/ML 3 ML KwikPen SUBCUT SCH ×3 (06:30→17:00)
--- NOTE | 2018-02-21 06:33 | US ---
Renal ultrasound with renal arterial Doppler: Multiple real-time images of both kidneys were obtained as well as duplex and color flow imaging of both renal arteries. Comparison: Prior CT abdomen and pelvis study performed without contrast performed on the same day (3:09 AM). Kidneys show no hydronephrosis or mass. Resistivity indices are within normal limits on the right side and slightly elevated on the left side. Maximum systolic velocity measurement within the right renal artery is mid at 0.73 m/s. Maximum systolic velocity measurement within the left renal artery is proximal at 0.93 m/s. Renal veins are patent on both sides. Bilateral ureteral jets are seen. Measurements: Right kidney length: 12.9 cm Left kidney length 12.7 cm Bladder: Prevoid volume 408 mL, post void volume 240 mL Impression: 1. Velocity measurements within the renal artery show nothing to indicate hemodynamic significant stenosis. 2. Slightly elevated resistivity index within the lower left kidney compatible with change from medical renal disease. 3. Significant postvoid residual within the bladder. Diagnostic code #3 MTDD
[2018-02-21] MEDS: amLODIPine 5 MG Tab PO SCH (08:06)
[2018-02-21] MEDS: Folic Acid 1 MG Tab PO SCH (08:06)
[2018-02-21] MEDS ORDERED: Hydrochlorothiazide 25 MG Tab PO SCH (09:00)
--- NOTE | 2018-02-21 15:55 | PCM.DCSUM1 ---
Discharge Summary - Hospital Course Free Text/Narrative:: 47 year old female with a history of diarrhea, had been seen in the ED 02/14/18 and was diagnosed with a UTI. The patient subsequently returned more symptomatic and was admitted with acute renal failure, CR increased from 2.1 to 3.0 after being started on Bactrim DS by the ED provider. It appears that she may have had at least 3 days of the antibiotic. On the day of admission, she was found to have a Hgb of ~6.1 and received 2 units of PRBC, and was admitted. The patient had bouts of hypoglycemia as a result, her oral hypoglycemic was held. She required dextrose for BS in the 40-50s. The occurrences of diarrhea subsided. The patient gradually improved, consults such as diabetic education were completed during her hospitalization. She is expected to change her nephrology appt to February if possible; heme appt as currently scheduled. And PCP as DC follow up appt should also be arranged. Suggest medical bracelet with G6PD alert to avoid CI. Hospitalization documentation provided if needed for [facility], patient will be returning to [facility]. Primary Dx S/P Bactrim DS, re: AUTI; 02/14/18 Dehydration with ARF Nephrotic Syndrome Hypoalbuminemia Hx G6PD Anemia, S/P PRBCs Hypoglycemia Hx of DM type 2 Meds Hold oral hypoglycemics as instructed if BS <150 Resume current home meds New, Zofran Dietary as indicated. Appts Nephrology Hematology PCP Instructions Suggest medical alert bracelet re: G6PDH HPI Initial Comments: Ashley Winters is a 47 yo female who presents to our ED via [facility] in the very early hours today with diarrhea. She is reportedly from [facility] and is here visiting family. She reports she has been having diarrhea for about a week and feels like it is getting worse. She denies any consumption of spoiled food or sick contacts. She was here on 14 February and at that time a complete workup was done. Her hemoglobin was found to be 8.2. She has a history of [id number] dehydrogenase deficiency. At that visit her UA showed a UTI and she was placed on Bactrim she reports her diarrhea did improve at that time for a very short period and then got worse she did have stool studies performed and she was C. difficile negative. She has been trying to eat and drink to stay hydrated. Eyes any fever, chills, cough, chest pain. She reports generalized weakness fatigue and shortness of breath along with swelling bilaterally. Her PCP has run HCTZ and Lasix. She also reports she has kidney disease and sees a lead mobile developer in [place]. Creatinine at the prior visit was 2.1. Denies any abdominal pain. She does report that she had appendicitis this past summer which was treated with antibiotics. In the ED an EKG was obtained showing sinus rhythm at 80 bpm with no abnormalities noted. Temp was 97.7 Fahrenheit. Pulse 81. Respirations 18. Blood pressure 120/59. Pulse ox 100%. Labs are obtained: WBC is 6.03. Hemoglobin 6.8. Hematocrit 20.4. She was normocytic. Platelets are good at 223,000. Neutrophils normal at 70.6. Sodium is 138. Potassium 4.2. Chloride 111. Carbon dioxide is 15. Anion gap is 16.2. BUN is 54. Creatinine 3.1. EGFR 16. Glucose 98. Calcium 7.5. Magnesium 2.0. Total bilirubin 0.1. AST is 51, ALT 43, alkaline phosphatase 95. Troponin is normal at 0.044. Protein is low at 5.3. Albumin very low at 1.2. Lipase is 156. UA is negative however her urine is concentrated and 3+ protein, 1+ glucose, 2+ occult blood, and 5-10 urine RBCs are noted. 3677. HCG is negative. Type and screen shows oh positive with negative screen. She is given 2 500 mL bags of fluid. CT scan of the abdomen and pelvis without contrast is obtained due to her kidney function contrast is not used. This is interpreted by Dr. Rodriguez as "1. Small bilateral pleural effusions with diffuse body wall edema. Minimal pericardial fluid is eating. 2. No acute intra-abdominal processes identified. " Stool is negative for blood. Stool cultures were ordered. 2 units of blood are given for her anemia. She carries a history of: Impaired vision, hypertension, recurrent UTIs, type II DM, G6PD deficiency. She was never a smoker. She is a full code. Her PCP is not from the area. Diagnosis: Stroke: No - Discharge Data Discharge Date: 02/21/18 Discharge Disposition: Home, Self-Care 01 Condition: Good - Patient Summary/Data Consults: Consultations 02/18/18 13:09 Consult to Clothes Wringer [CONS] Routine 02/18/18 23:19 Consult to It Security Consultant [Consult to Diabetic Nurse Specialist] [CONS] Routine - Patient Instructions Diet: Usual Diet as Tolerated Activity: As Tolerated Driving: Do Not Drive Showering/Bathing: May Shower Notify Provider of: Fever, Increased Pain, Nausea and/or Vomiting - Discharge Plan *PRESCRIPTION DRUG MONITORING PROGRAM REVIEWED*: Not Applicable *COPY OF PRESCRIPTION DRUG MONITORING REPORT IN PATIENT ADDI: Not Applicable Prescriptions/Med Rec: Ondansetron [Zofran ODT] 4 mg PO Q6H PRN #20 tab.dis PRN Reason: Nausea/Vomiting Home Medications: Home Meds Folic Acid 1 tab PO DAILY 02/14/18 [History] Furosemide [Lasix] 1 tab PO DAILY 02/14/18 [History] Glimepiride [Amaryl] 3 tab PO DAILY 02/14/18 [History] amLODIPine Besylate [Amlodipine Besylate] 1 tab PO DAILY 02/14/18 [History] hydroCHLOROthiazide [Hydrochlorothiazide] 1 tab PO DAILY 02/14/18 [History] Ondansetron [Zofran ODT] 4 mg PO Q6H PRN #20 tab.dis 02/21/18 [Rx] Patient Handouts: Dehydration, Adult, [id number], Dehydration, Adult Forms: ED Department Discharge Referrals: PCP,Not In Area [Primary Care Provider] - - Discharge Summary/Plan Comment DC Time >30 min.: No Discharge Summary/Plan Comment: I/P: Acute: Nephrotic Syndrome/Overt Proteinuria - Carries a long time hx/o diabetes - UA is 3+ protein, Significant Edema and Hypoalbuminemia (Albumin of 1.2); no lipid panel ordered - She states she has been seeing a lead mobile developer; her recent [place] she was taken off ACEI and switch to Amlodine along with her lasix and hctz--> plan is to switch her back to ACEI once her kidneys as better per patient Significant Peripheral Edema, Improved -2/2 Nephrotic Syndrome -2+ edema noted in ED -2 Echo report 02/18/2018 LVEF 60-65%. No Valvular Dysfunction. No RWMA. Normal Right VS Function (no heart failure) -Hx/o Edema - on home HCTZ and lasix -Hold home Lasix; resume hctz later -Pro-BNP 3677 (has Hx/o renal failure) -CT scan shows small bilateral pleural effusions and diffuse body wall edema -CXR ordered 02/19/18 shows not no significant change from previous imaging 02/18/2018 Non Oliguric Renal Failure -Acute on chronic 2/2 Nephrotic Syndrome -Hx/o G6PD, HTN, Type II DM, and Nephrotic Syndrome -Worsened by dehydration (concentrated urine, frequent recent diarrhea and antibiotic use to treat UTI) -Unknown baseline - last visit in ED showed creatinine/GFR of 2.1/25 -Not from area - reportedly sees nephrology in [place] -Renal ultrasound 02/18/2018 reports suggests on underlying medical renal disease -Creatinine 3.1-->3.0 (baseline 2.4 02/14/2018) -BUN 54-->50; eGFR 16-->17 -Continue IVF fluids for renal perfusion Hypoalbuminemia -Albumin 1.2 --> 1.2 (1.4 baseline) -2/2 Nephrotic Syndrome -Contributing to 3rd spacing of fluids -Dietary consult for malnutrition -Renal diet Hypoglycemia w/ DM2 -A1C 4.30 -2/2 Glimepiride in the setting for acute renal failure -On D5W IV infusion but has had multiple hypoglycemic episode -BS dropped to 30, 40, 50s overnight -D/c Glimiperide and start low dose ISS Reduced Appetite -Offered Marinol -Refused it Resolved: S/p Anemia -2/2 Acute G6PD Hemolysis and Poor Iron Intake (No Appetite) -Has hx/o G6PD Deficiency -Negative occult blood -Hgb 6.8-->9.6--> 9.6 (stable) -Hgb 8.1 on prior visit to ED 4 days ago (02/14/18) -Given 2 units in ED -Repeat Hgb as needed S/p Diarrhea -Reports diarrhea for past week - feels like it is getting worse -Diagnosed with viral gastroenteritis on 02/14/18 in our ED -Negative for C. Diff on 02/14/18 -No leukocytosis -CRP 3.5 -CT abdomen/Pelvis in ED on 02/18/18 -Small bilateral pleural effusions with diffuse body wall edema -Minimal pericardial fluid is seen -No acute intra-abdominal process is seen -No Diarrhea since this AM Chronic: Impaired vision HTN Recurrent UTI Type II DM. Well controlled G6PD Deficiency Plan: She is clinically stable Home medications as ordered Routine AM Labs Other orders as indicated above DVT/PE Prophylaxis: Heparin SubQ Encourage to ambulate as tolerated Code status: Full code; PCP: [place] - General Info Date of Service: 02/18/18 Functional Status: Reports: Pain Controlled, Tolerating Diet, Ambulating, Urinating - Review of Systems General: Reports: No Symptoms HEENT: Reports: No Symptoms Pulmonary: Reports: No Symptoms Cardiovascular: Reports: No Symptoms Gastrointestinal: Reports: No Symptoms Genitourinary: Reports: No Symptoms Musculoskeletal: Reports: No Symptoms Skin: Reports: No Symptoms Neurological: Reports: No Symptoms Psychiatric: Reports: No Symptoms - Patient Data Vitals - Most Recent: Last Vital Signs Temp 37.2 C 02/21/18 12:00 Pulse 80 02/21/18 12:00 Resp 16 02/21/18 12:00 BP 150/78 H 02/21/18 12:00 Pulse Ox 98 02/21/18 12:00 Weight - Most Recent: 72.756 kg I&O - Last 24 hours: Intake & Output 02/21/18 02/21/18 02/21/18 06:59 14:59 22:59 Intake Total 650 240 Output Total 700 400 Balance -50 -160 Lab Results - Last 24 hrs: Laboratory Results - last 24 hr 02/20/18 02/20/18 02/21/18 Range/Units 17:40 20:47 02:28 WBC (3.98-10.04) K/mm3 RBC (3.98-5.22) M/mm3 Hgb (11.2-15.7) gm/L Hct (34.1-44.9) % MCV (79.4-94.8) fl MCH (25.6-32.2) pg MCHC (32.2-35.5) g/dl RDW Std Deviation (36.4-46.3) fL Plt Count (182-369) K/mm3 MPV (9.4-12.3) fl Neut % (Auto) (34.0-71.1) % Lymph % (Auto) (19.3-51.7) % Sampson % (Auto) (4.7-12.5) % Eos % (Auto) (0.7-5.8) Baso % (Auto) (0.1-1.2) % Neut # (Auto) (1.56-6.13) K/mm3 Lymph # (Auto) (1.18-3.74) K/mm3 Sampson # (Auto) (0.24-0.36) K/mm3 Eos # (Auto) (0.04-0.36) K/mm3 Baso # (Auto) (0.01-0.08) K/mm3 Sodium (136-145) mEq/L Potassium (3.5-5.1) mEq/L Chloride (98-107) mEq/L Carbon Dioxide (21-32) mEq/L Anion Gap (5-15) BUN (7-18) mg/dL Creatinine (0.55-1.02) mg/dL Est Cr Clr Drug Dosing mL/min Estimated GFR (MDRD) (>60) mL/min BUN/Creatinine Ratio (14-18) Glucose (74-106) mg/dL POC Glucose 110 H 124 H 90 (70-105) mg/dL Calcium (8.5-10.1) mg/dL Magnesium (1.8-2.4) mg/dl Total Bilirubin (0.2-1.0) mg/dL AST (15-37) U/L ALT (14-59) U/L Alkaline Phosphatase (46-116) U/L Lactate Dehydrogenase (81-234) U/L NT-Pro-B Natriuret Pep (0-125) pg/mL Total Protein (6.4-8.2) g/dl Albumin (3.4-5.0) g/dl Globulin gm/dL Albumin/Globulin Ratio (1-2) 02/21/18 02/21/18 02/21/18 Range/Units 05:26 05:28 05:28 WBC 5.57 (3.98-10.04) K/mm3 RBC 3.11 L (3.98-5.22) M/mm3 Hgb 9.2 L (11.2-15.7) gm/L Hct 27.7 L (34.1-44.9) % MCV 89.1 (79.4-94.8) fl MCH 29.6 (25.6-32.2) pg MCHC 33.2 (32.2-35.5) g/dl RDW Std Deviation 40.8 (36.4-46.3) fL Plt Count 285 (182-369) K/mm3 MPV 8.3 L (9.4-12.3) fl Neut % (Auto) 63.4 (34.0-71.1) % Lymph % (Auto) 23.0 (19.3-51.7) % Sampson % (Auto) 8.4 (4.7-12.5) % Eos % (Auto) 4.5 (0.7-5.8) Baso % (Auto) 0.5 (0.1-1.2) % Neut # (Auto) 3.53 (1.56-6.13) K/mm3 Lymph # (Auto) 1.28 (1.18-3.74) K/mm3 Sampson # (Auto) 0.47 H (0.24-0.36) K/mm3 Eos # (Auto) 0.25 (0.04-0.36) K/mm3 Baso # (Auto) 0.03 (0.01-0.08) K/mm3 Sodium 139 (136-145) mEq/L Potassium 4.2 (3.5-5.1) mEq/L Chloride 113 H (98-107) mEq/L Carbon Dioxide 15 L (21-32) mEq/L Anion Gap 15.2 H (5-15) BUN 40 H (7-18) mg/dL Creatinine 2.1 H (0.55-1.02) mg/dL Est Cr Clr Drug Dosing 25.56 mL/min Estimated GFR (MDRD) 25 (>60) mL/min BUN/Creatinine Ratio 19.0 H (14-18) Glucose 94 (74-106) mg/dL POC Glucose 82 (70-105) mg/dL Calcium 7.9 L (8.5-10.1) mg/dL Magnesium 2.1 (1.8-2.4) mg/dl Total Bilirubin 0.2 (0.2-1.0) mg/dL AST 26 (15-37) U/L ALT 39 (14-59) U/L Alkaline Phosphatase 91 (46-116) U/L Lactate Dehydrogenase (81-234) U/L NT-Pro-B Natriuret Pep (0-125) pg/mL Total Protein 5.2 L (6.4-8.2) g/dl Albumin 1.2 L (3.4-5.0) g/dl Globulin 4.0 gm/dL Albumin/Globulin Ratio 0.3 L (1-2) 02/21/18 02/21/18 02/21/18 Range/Units 05:28 05:28 11:12 WBC (3.98-10.04) K/mm3 RBC (3.98-5.22) M/mm3 Hgb (11.2-15.7) gm/L Hct (34.1-44.9) % MCV (79.4-94.8) fl MCH (25.6-32.2) pg MCHC (32.2-35.5) g/dl RDW Std Deviation (36.4-46.3) fL Plt Count (182-369) K/mm3 MPV (9.4-12.3) fl Neut % (Auto) (34.0-71.1) % Lymph % (Auto) (19.3-51.7) % Sampson % (Auto) (4.7-12.5) % Eos % (Auto) (0.7-5.8) Baso % (Auto) (0.1-1.2) % Neut # (Auto) (1.56-6.13) K/mm3 Lymph # (Auto) (1.18-3.74) K/mm3 Sampson # (Auto) (0.24-0.36) K/mm3 Eos # (Auto) (0.04-0.36) K/mm3 Baso # (Auto) (0.01-0.08) K/mm3 Sodium (136-145) mEq/L Potassium (3.5-5.1) mEq/L Chloride (98-107) mEq/L Carbon Dioxide (21-32) mEq/L Anion Gap (5-15) BUN (7-18) mg/dL Creatinine (0.55-1.02) mg/dL Est Cr Clr Drug Dosing mL/min Estimated GFR (MDRD) (>60) mL/min BUN/Creatinine Ratio (14-18) Glucose (74-106) mg/dL POC Glucose 161 H (70-105) mg/dL Calcium (8.5-10.1) mg/dL Magnesium (1.8-2.4) mg/dl Total Bilirubin (0.2-1.0) mg/dL AST (15-37) U/L ALT (14-59) U/L Alkaline Phosphatase (46-116) U/L Lactate Dehydrogenase 242 H (81-234) U/L NT-Pro-B Natriuret Pep 3182 H (0-125) pg/mL Total Protein (6.4-8.2) g/dl Albumin (3.4-5.0) g/dl Globulin gm/dL Albumin/Globulin Ratio (1-2) [id number] Results - Last 24 hrs: Microbiology 02/18/18 05:30 Stool Culture - Final Stool / Feces NORMAL ENTERIC KRUNAL. NO SALMONELLA, SHIGELLA, CAMPYLOBACTER, E.COLI O157 OR YERSINIA ISOLATED. Shiga Toxin I - Final NEGATIVE FOR SHIGA TOXIN 1 Shiga Toxin II - Final NEGATIVE FOR SHIGA TOXIN 2 Med Orders - Current: Current Medications Acetaminophen (Tylenol) 650 mg PO Q4H PRN PRN Reason: Pain (Mild 1-3)/fever Amlodipine Besylate (Norvasc) 5 mg PO DAILY [facility] Last Admin: 02/21/18 08:06 Dose: 5 mg Dextrose/Water (Dextrose 50% In Water) 50 ml IVPUSH ASDIRECTED PRN PRN Reason: Hypoglycemia Last Admin: 02/19/18 10:06 Dose: 50 ml Folic Acid (Folic Acid) 1 mg PO DAILY [facility] Last Admin: 02/21/18 08:06 Dose: 1 mg Heparin Sodium (Porcine) (Heparin Sodium) 5,000 units SUBCUT Q8H [facility] Last Admin: 02/21/18 15:05 Dose: 5,000 units Hydrochlorothiazide (Hydrochlorothiazide) 25 mg PO DAILY [facility] Last Admin: 02/21/18 08:05 Dose: 25 mg Insulin Human Lispro (Humalog) 0 unit SUBCUT QIDACANDBED [facility]; Protocol Last Admin: 02/21/18 11:37 Dose: 1 unit Metoprolol Tartrate (Lopressor) 5 mg IVPUSH Q4H PRN PRN Reason: Tachycardia Ondansetron HCl (Zofran) 4 mg IV Q6H PRN PRN Reason: Nausea/Vomiting Ondansetron HCl (Zofran Odt) 4 mg PO Q6H PRN PRN Reason: nausea, able to take PO Sodium Chloride (Saline Flush) 10 ml FLUSH ASDIRECTED PRN PRN Reason: Keep Vein Open Last Admin: 02/18/18 02:53 Dose: 10 ml Terazosin HCl (Hytrin) 1 mg PO BID PRN PRN Reason: Hypertension Discontinued Medications Hydrocodone Bitart/Acetaminophen ([place] 325-5 Mg) 1 tab PO Q4H PRN PRN Reason: Pain (moderate 4-6) Bumetanide (Bumex) 1 mg IVPUSH ONETIME ONE Stop: 02/18/18 07:31 Last Admin: 02/18/18 07:49 Dose: 1 mg Bumetanide (Bumex) 0.5 mg IVPUSH DAILY [facility] Last Admin: 02/19/18 10:19 Dose: Not Given Glimepiride (Amaryl) 6 mg PO DAILY [facility] Last Admin: 02/18/18 10:21 Dose: 6 mg Glimepiride (Amaryl) 2 mg PO DAILY [facility] Last Admin: 02/19/18 10:18 Dose: Not Given Glimepiride (Amaryl) 2 mg PO DAILY [facility] Hydralazine HCl (Apresoline) 20 mg IVPUSH Q4H PRN PRN Reason: Hypertension Hydrochlorothiazide (Hydrochlorothiazide) 12.5 mg PO DAILY [facility] Last Admin: 02/20/18 09:06 Dose: 12.5 mg Hydromorphone HCl (Dilaudid) 0.25 mg IVPUSH Q2H PRN PRN Reason: Pain (severe 7-10) Sodium Chloride (Normal Saline) Confirm Administered Dose 500 mls @ as directed .ROUTE .STK-MED ONE Stop: 02/18/18 04:28 Last Admin: 02/18/18 04:48 Dose: Not Given Sodium Chloride (Normal Saline) 500 mls @ 20 mls/hr IV ONETIME ONE Stop: 02/19/18 05:38 Last Admin: 02/18/18 04:48 Dose: Not Given Sodium Chloride (Normal Saline) 500 mls @ 25 mls/hr IV ONETIME ONE Stop: 02/19/18 00:45 Last Admin: 02/18/18 04:47 Dose: 25 mls/hr Sodium Chloride (Normal Saline) 1,000 mls @ 150 mls/hr IV ASDIRECTED [facility] Stop: 02/18/18 19:54 Sodium Chloride (Normal Saline) 1,000 mls @ 150 mls/hr IV Q7H [facility] Stop: 02/19/18 04:39 Last Admin: 02/18/18 15:56 Dose: 150 mls/hr Dextrose/Sodium Chloride (Dextrose 5%-Normal Saline) 1,000 mls @ 50 mls/hr IV ASDIRECTED [facility] Last Infusion: 02/19/18 19:53 Dose: 150 mls/hr Dextrose/Sodium Chloride (Dextrose 5%-Normal Saline) Confirm Administered Dose 1 ,000 mls @ as directed .ROUTE .STK-MED ONE Stop: 02/18/18 21:05 Last Admin: 02/18/18 21:17 Dose: Not Given Furosemide 100 mg/ Sodium (Chloride) 100 mls @ 1.5 mls/hr IV TITRATE [facility]; Protocol Last Infusion: 02/21/18 09:30 Dose: 0 mls/hr Albumin Human (Flexbumin 25%) 25 gm in 100 mls @ 100 mls/hr IV ONETIME ONE Stop: 02/19/18 10:10 Last Admin: 02/19/18 09:36 Dose: 100 mls/hr Sodium Chloride (Normal Saline) 1,000 mls @ 100 mls/hr IV ASDIRECTED [facility] Last Admin: 02/20/18 15:32 Dose: 100 mls/hr Magnesium Sulfate 2 gm/ Premix 50 mls @ 25 mls/hr IV ONETIME ONE Stop: 02/20/18 16:16 Last Admin: 02/20/18 14:26 Dose: 25 mls/hr Lactated Ringer's (Ringers, Lactated) 1,000 mls @ 100 mls/hr IV ASDIRECTED [facility] Last Admin: 02/21/18 01:07 Dose: 100 mls/hr Magnesium Sulfate (Pharmacy To Dose - Magnesium Replacement) 1 dose .XX ASDIRECTED [facility] Ondansetron HCl (Zofran) 4 mg IVPUSH ONETIME ONE Stop: 02/18/18 02:43 Last Admin: 02/18/18 02:53 Dose: 4 mg Potassium Chloride (Pharmacy To Dose - Potassium Replacement) 1 dose .XX ASDIRECTED [facility] - Exam Quality Assessment: Reports: DVT Prophylaxis General: Reports: Alert, Oriented, Cooperative, No Acute Distress HEENT: Reports: Pupils Equal, Pupils Reactive, EOMI Neck: Reports: Trachea Midline, No JVD Lungs: Reports: Clear to Auscultation, Normal Respiratory Effort Cardiovascular: Reports: Regular Rate, Regular Rhythm GI/Abdominal Exam: Normal Bowel Sounds, Soft, Non-Tender, No Organomegaly, No Distention (Female) Exam: Deferred Rectal (Female) Exam: Deferred Back Exam: Reports: Normal Inspection Extremities: Normal Inspection, Non-Tender, Normal Capillary Refill, Pedal Edema (3 to 4+ -->2+) Skin: Reports: Warm Neurological: Reports: No New Focal Deficit, Normal Gait, Normal Speech Psy/Mental Status: Reports: Alert, Normal Affect, Normal Mood
[2018-02-23] MEDS ORDERED: Glimepiride 2 MG Tab PO SCH (09:00)
== END 2018-02-21 19:45 | disposition home or self-care (01) | DRG 812 ==
LOC: JD.ED 01:59 → JD.ICU 06:50
PROVIDERS: ADMIT Internal Medicine; ATTEND Internal Medicine
PROC: 30233N1 Transfusion of Nonautologous Red Blood Cells into Peripheral Vein, Percutaneous Approach (ICD-10-PCS; principal; 2018-02-18)
DX: D55.0 Anemia due to glucose-6-phosphate dehydrogenase [G6PD] deficiency (principal); N17.9 Acute kidney failure, unspecified; E86.0 Dehydration; E11.649 Type 2 diabetes mellitus with hypoglycemia without coma; Z79.84 Long term (current) use of oral hypoglycemic drugs; E11.21 Type 2 diabetes mellitus with diabetic nephropathy; H54.7 Unspecified visual loss; Z87.440 Personal history of urinary (tract) infections; E11.22 Type 2 diabetes mellitus with diabetic chronic kidney disease; I12.9 Hypertensive chronic kidney disease with stage 1 through stage 4 chronic kidney disease, or unspecified chronic kidney disease; N18.9 Chronic kidney disease, unspecified; A08.4 Viral intestinal infection, unspecified; T38.3X5A Adverse effect of insulin and oral hypoglycemic [antidiabetic] drugs, initial encounter
CPT/HCPCS: 36415; 71045; 71045-26; 71046; 71046-26; 74176; 74176-26; 76775; 76775-26; 80048; 80053; 80061; 81001; 82043; 82272; 82947; 82962; 83010; 83036; 83615; 83690; 83735; 83880; 84484; 84703; 85025; 86140; 87046; 87427; 93005; 93306; 93976; 93976-26; 96361; 96374; 99285-25; A9270-GY; J1644; J1815; J1940; J2405; J3475; J3490; J7030; J7040; J7042; J7060; J7120; P9016; P9047